=== PATIENT | female | born 1990 | race Caucasian/White ===

== ENCOUNTER 2018-04-12 19:17 | Emergency (ER) | payer BC ==
[2018-04-12] MEDS ORDERED: MORPHINE 4 MG/ML SYR ONE (19:59)
[2018-04-12] MEDS ORDERED: KETOROLAC 30 MG/ML INJ ONE (20:00)
[2018-04-12] MEDS ORDERED: NA CHLORIDE 0.9% 1,000 ML ONE (20:00)
[2018-04-12] MEDS ORDERED: ONDANSETRON 4 MG/2 ML VIAL ONE (20:00)
[2018-04-12] MEDS ORDERED: CEFTRIAXONE/SWI 1gm 1 GM/10 ML SYR ONE (20:00)
[2018-04-12 20:20] LABS: Absolute Lymphocytes (CBC) 2.4 K/uL (0.7-4.9); Absolute Monocytes 0.9 K/uL (0.1-1.3); Absolute Neutrophil 11.5 K/uL (1.8-8.0); Basophils % 0.3 % (0-1.3); Eosinophils % 1.1 % (0-4.4); Hematocrit 37.5 % (36.0-45.0); Lymphocytes % 15.7 % (15.3-44.8); MCH 29.2 pg (27.0-35.0); MCV 87.2 fL (80-100); MPV 8.4 fL (7.6-11.3); Monocytes % 5.9 % (3.3-12.3)
[2018-04-12] MEDS ORDERED: CIPROFLOXACIN HCL 500 MG TAB ONE (20:24)
[2018-04-12] MEDS ORDERED: TAMSULOSIN 0.4 MG SR CAP ONE (20:24)
[2018-04-12 20:35] LABS: ALT/SGPT 26 U/L (12-78); AST/SGOT 19 U/L (15-37); Alkaline Phosphatase 66 U/L (45-117); BUN Blood Urea Nitrogen 10 mg/dL (7-18); Bicarbonate 25 mmol/L (21-32); Bilirubin Direct < 0.1 mg/dL (0-0.2); Bilirubin Total 0.3 mg/dL (0.2-1.0); Glucose Level 89 mg/dL (74-106); Lipase 168 U/L (73-393); Potassium 3.7 mmol/L (3.5-5.1); Protein, Total 7.8 g/dL (6.4-8.2); Sodium Level 140 mmol/L (136-145)
--- NOTE | 2018-04-12 20:52 | RAD REPORT ---
EXAM DESCRIPTION: CT - Stone Protocol - 04/12/2018 8:37 pm CLINICAL HISTORY: Flank pain. Abd pain;Flank pain COMPARISON: No comparisons TECHNIQUE: Axial images were obtained without oral or IV contrast. Lack of contrast limits solid org an and vascular assessment. The [id number] spans the entirety of the system partially obscuring uppermost abdomen and lung bases. Coronal reformatted images were obtained and reviewed. All CT scans are performed using dose optimization technique as appropriate and may include automated exposure control or mA/KV adjustment according to patient size. FINDINGS: The lower lung singh are clear. Imaged portions of the liver and spleen show no suspicious findings on non-contrast imaging. The panc reas and adrenal glands are normal. No pathologic lymphadenopathy in the abdomen or pelvis. 2 mm stone is present at the UVJ with mild left hydronephrosis and hydroureter. Punctate additional b ilateral nephrolithiasis is also seen. No bowel obstruction, free air, free fluid or abscess. Normal appendix noted. No significant bony abnormality. IMPRESSION: 2 mm stone left UVJ resulting in mild left hydronephrosis. Punctate bilateral nephrolithiasis.
--- NOTE | 2018-04-12 20:58 | EDPHYS ---
Physician Documentation [facility] Name: Lorin Lyon Age: 27 yrs Sex: Female : 1990 Arrival Date: 04/12/2018 Time: 19:19 Bed 14 Private MD: Ivan Jackson T ED Physician Frank Hurtado HPI: 04/12 19:46 This 27 yrs old Female presents to ER via Ambulatory with complaints of Back pj Pain, Side Pain. 19:46 The patient presents with pain that is acute, with no known mechanism of injury. The pj symptoms are located in the low back, left low back and left mid back. Onset: The symptoms/episode began/occurred 1 day(s) ago. 20:01 The pain does not radiate. Associated signs and symptoms: The patient has no apparent pj associated signs or symptoms. The problem was sustained from unknown cause. Modifying factors: The patient symptoms are alleviated by nothing, the patient symptoms are aggravated by nothing. Severity of symptoms: At their worst the symptoms were moderate. The patient has experienced similar episodes in the past, a few times. 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 - Social history:: Smoking status: Patient uses tobacco products, smokes one pack cigarettes per day. - Ebola Screening: : Patient negative for fever greater than or equal to 101.5 degrees Fahrenheit, and additional compatible Ebola Virus Disease symptoms Patient denies exposure to infectious person Patient denies travel to an Ebola-affected area in the 21 days before illness onset No symptoms or risks identified at this time. - Family history:: not pertinent. ROS: 20:01 Constitutional: Negative for fever, chills, and weight loss, Eyes: Negative for injury, pj pain, redness, and discharge, ENT: Negative for injury, pain, and discharge, Neck: Negative for injury, pain, and swelling, Cardiovascular: Negative for chest pain, palpitations, and edema, Respiratory: Negative for shortness of breath, cough, wheezing, and pleuritic chest pain, Abdomen/GI: Negative for abdominal pain, nausea, vomiting, diarrhea, and constipation, : Negative for injury, bleeding, discharge, and swelling, MS/Extremity: Negative for injury and deformity, Skin: Negative for injury, rash, and discoloration, Neuro: Negative for headache, weakness, numbness, tingling, and seizure, Psych: Negative for depression, anxiety, suicide ideation, homicidal ideation, and hallucinations, Allergy/Immunology: Negative for hives, rash, and allergies, Endocrine: Negative for neck swelling, polydipsia, polyuria, polyphagia, and marked weight changes, Hematologic/Lymphatic: Negative for swollen nodes, abnormal bleeding, and unusual bruising. 20:01 Back: Positive for flank pain, on the left. Exam: 20:01 Constitutional: This is a well developed, well nourished patient who is awake, alert, pj and in no acute distress. Head/Face: Normocephalic, atraumatic. Eyes: Pupils equal round and reactive to light, extra-ocular motions intact. Lids and lashes normal. Conjunctiva and sclera are non-icteric and not injected. Cornea within normal limits. Periorbital areas with no swelling, redness, or edema. ENT: Nares patent. No nasal discharge, no septal abnormalities noted. Tympanic membranes are normal and external auditory canals are clear. Oropharynx with no redness, swelling, or masses, exudates, or evidence of obstruction, uvula midline. Mucous membranes moist. Neck: Trachea midline, no thyromegaly or masses palpated, and no cervical lymphadenopathy. Supple, full range of motion without nuchal rigidity, or vertebral point tenderness. No Meningismus. Chest/axilla: Normal chest wall appearance and motion. Nontender with no deformity. No lesions are appreciated. Cardiovascular: Regular rate and rhythm with a normal S1 and S2. No gallops, murmurs, or rubs. Normal PMI, no JVD. No pulse deficits. Respiratory: Lungs have equal breath sounds bilaterally, clear to auscultation and percussion. No rales, rhonchi or wheezes noted. No increased work of breathing, no retractions or nasal flaring. Female : Normal external genitalia. Skin: Warm, dry with normal turgor. Normal color with no rashes, no lesions, and no evidence of cellulitis. MS/ Extremity: Pulses equal, no cyanosis. Neurovascular intact. Full, normal range of motion. Neuro: Awake and alert, GCS 15, oriented to person, place, time, and situation. Cranial nerves II-XII grossly intact. Motor strength 5/5 in all extremities. Sensory grossly intact. Cerebellar exam normal. Normal gait. Psych: Awake, alert, with orientation to person, place and time. Behavior, mood, and affect are within normal limits. 20:01 Abdomen/GI: Inspection: abdomen appears normal, Bowel sounds: normal, Palpation: mild abdominal tenderness, moderate abdominal tenderness, in the posterior aspect of left lateral abdomen and left lower quadrant, Liver: no appreciated palpable abnormalities, Hernia: not appreciated. Vital Signs: 19:25 BP 135 / 75; Pulse 95; Resp 18; Temp 98.1; Pulse Ox 99% on R/A; Weight 63.5 kg; Height aj 5 ft. 4 in. (162.56 cm); 20:30 BP 124 / 65; Pulse 89; Resp 17 S; Pulse Ox 99% on R/A; Pain 0/10; cc3 21:05 BP 114 / 67; Pulse 88; Resp 17 S; Pulse Ox 100% on R/A; Pain 0/10; cc3 19:25 Body Mass Index 24.03 (63.50 kg, 162.56 cm) aj MDM: 19:30 Patient medically screened. [facility] 20:01 Data reviewed: vital signs, nurses notes, lab test result(s), radiologic studies, CT pj scan. 04/12 19:46 Order name: Basic Metabolic Panel; Complete Time: 20:56 pj 04/12 19:46 Order name: CBC with Diff; Complete Time: 20:56 [facility] 04/12 19:46 Order name: Creatinine for Radiology; Complete Time: 20:56 pj 04/12 19:46 Order name: Hepatic Function; Complete Time: 20:56 pj 04/12 19:46 Order name: Lipase; Complete Time: 20:56 pj 04/12 19:47 Order name: Urine Dipstick--Ancillary (enter results) ms 04/12 19:46 Order name: CT Stone Protocol; Complete Time: 20:56 pj 04/12 19:47 Order name: Urine --Ancillary (enter results) ms 04/12 20:03 Order name: Urine Culture mg2 04/12 19:46 Order name: IV Saline Lock; Complete Time: 20:02 pj 04/12 19:46 Order name: Labs collected and sent; Complete Time: 20:02 [facility] Administered Medications: 20:01 Drug: morphine 4 mg Route: IVP; Site: right antecubital; mg2 20:15 Follow up: Response: No adverse reaction; Pain is decreased cc3 20:01 Drug: Zofran 4 mg Route: IVP; Site: right antecubital; mg2 20:15 Follow up: Response: No adverse reaction; Nausea is decreased; Vomiting decreased cc3 20:02 Drug: NS 0.9% 1000 ml Route: IV; Rate: 1 bolus; Site: right antecubital; mg2 21:20 Follow up: Response: No adverse reaction; IV Status: Completed infusion; IV Intake: cc3 1000ml 20:02 Drug: TORadol 30 mg Route: IVP; Site: right antecubital; mg2 20:15 Follow up: Response: No adverse reaction cc3 20:02 Drug: Rocephin - (cefTRIAXone) 1 grams Route: IVPB; Infused Over: 30 mins; Site: right mg2 antecubital; 20:30 Follow up: Response: No adverse reaction; IV Status: Completed infusion; IV Intake: [id number] 20:15 Drug: Flomax 0.4 mg Route: PO; cc3 21:00 Follow up: Response: No adverse reaction cc3 20:15 Drug: Cipro 500 mg Route: PO; cc3 21:00 Follow up: Response: No adverse reaction cc3 Disposition: 04/12/18 20:58 Discharged to Home. Impression: Acute tubulo-interstitial nephritis, Cystitis, Hydronephrosis with renal and ureteral calculous obstruction - 2mm uvj. - Condition is Stable. - Discharge Instructions: Dysuria, Kidney Stones, Pyelonephritis, Adult, Pyelonephritis, Adult, [id number], Kidney Stones, [id number], Hydronephrosis, Dietary Guidelines to Help Prevent Kidney Stones. - Prescriptions for Tylenol- Codeine #3 300-30 mg Oral Tablet - take 2 tablet by ORAL route every 6 hours As needed; 30 tablet. Flomax 0.4 mg Oral Capsule, Sust. Release 24 hr - take 1 capsule by ORAL route once daily 1/2 hour following the same meal each day; 20 capsule. Cipro 500 mg Oral Tablet - take 1 tablet by ORAL route every 12 hours for 7 days; 14 tablet. - Medication Reconciliation Form, Thank You Letter, Antibiotic Education, Prescription Opioid Use form. - Follow up: Ivan Jackson; When: 2 - 3 days; Reason: Recheck today's complaints, Continuance of care, Re-evaluation by your physician. Follow up: Abram Perkins MD; When: 2 - 3 days; Reason: Recheck today's complaints, Continuance of care, Re-evaluation by your physician. - Problem is new. - Symptoms have improved. Signatures: Dispatcher [employer] EDJacinda Ngueyn RN RN aj Anderson, Corey, MD MD cha Gardose, Michele, RN RN mg2 Cordel, Charlene cc3 Corrections: (The following items were deleted from the chart) 20:59 20:58 04/12/2018 20:58 Discharged to Home. Impression: Acute tubulo-interstitial pj nephritis; Cystitis; Hydronephrosis with renal and ureteral calculous obstruction - 2mm uvj. Condition is Stable. Discharge Instructions: Dysuria, Pyelonephritis, Adult, Pyelonephritis, Adult, [id number]. Prescriptions for Tylenol-Codeine #3 300-30 mg Oral Tablet - take 2 tablet by ORAL route every 6 hours As needed; 30 tablet, Flomax 0.4 mg Oral Capsule, Sust. Release 24 hr - take 1 capsule by ORAL route once daily 1/2 hour following the same meal each day; 20 capsule, Cipro 500 mg Oral Tablet - take 1 tablet by ORAL route every 12 hours for 7 days; 14 tablet. and Forms are Medication Reconciliation Form, Thank You Letter, Antibiotic Education, Prescription Opioid Use. Follow up: Ivan Jackson; When: 2 - 3 days; Reason: Recheck today's complaints, Continuance of care, Re-evaluation by your physician. Problem is new. Symptoms have improved. pj 21:31 20:59 04/12/2018 20:58 Discharged to Home. Impression: Acute tubulo-interstitial cc3 nephritis; Cystitis; Hydronephrosis with renal and ureteral calculous obstruction - 2mm uvj. Condition is Stable. Discharge Instructions: Dysuria, Pyelonephritis, Adult, Pyelonephritis, Adult, [id number], Kidney Stones, Kidney Stones, [id number], Hydronephrosis, Dietary Guidelines to Help Prevent Kidney Stones. Prescriptions for Tylenol-Codeine #3 300-30 mg Oral Tablet - take 2 tablet by ORAL route every 6 hours As needed; 30 tablet, Flomax 0.4 mg Oral Capsule, Sust. Release 24 hr - take 1 capsule by ORAL route once daily 1/2 hour following the same meal each day; 20 capsule, Cipro 500 mg Oral Tablet - take 1 tablet by ORAL route every 12 hours for 7 days; 14 tablet. and Forms are Medication Reconciliation Form, Thank You Letter, Antibiotic Education, Prescription Opioid Use. Follow up: Ivan Jackson; When: 2 - 3 days; Reason: Recheck today's complaints, Continuance of care, Re-evaluation by your physician. Follow up: Abram Perkins; When: 2 - 3 days; Reason: Recheck today's complaints, Continuance of care, Re-evaluation by your physician. Problem is new. Symptoms have improved. pj
--- NOTE | 2018-04-12 20:58 | ER ---
Nurse's Notes [facility] Name: Lorin Lyon Age: 27 yrs Sex: Female : 1990 Arrival Date: 04/12/2018 Time: 19:19 Bed 14 Private MD: Ivan Jackson T Diagnosis: Acute tubulo-interstitial nephritis;Cystitis;Hydronephrosis with renal and ureteral calculous obstruction-2mm uvj Presentation: 04/12 19:24 Presenting complaint: Patient states: Left flank pain 3 hours ago with nausea. aj Transition of care: patient was not received from another setting of care. Onset of symptoms was April 12, 2018. Risk Assessment: Do you want to hurt yourself or someone else? Patient reports no desire to harm self or others. Initial Sepsis Screen: Does the patient meet any 2 criteria? No. Patient's initial sepsis screen is negative. Does the patient have a suspected source of infection? No. Patient's initial sepsis screen is negative. Care prior to arrival: None. 19:24 Method Of Arrival: Ambulatory aj 19:24 Acuity: PATRICIA 3 aj Triage Assessment: 19:25 General: Appears in no apparent distress. uncomfortable, Behavior is cooperative, aj crying. Pain: Complains of pain in posterior aspect of left lateral abdomen and anterior aspect of left lateral abdomen. Neuro: Level of Consciousness is awake, alert, obeys commands, Oriented to person, place, time, situation, Appropriate for age. Respiratory: Airway is patent Respiratory effort is even, unlabored, Respiratory pattern is regular, symmetrical. : Reports pain in left flank(s). Derm: Skin is intact, is healthy with good turgor. Musculoskeletal: Circulation, motion, and sensation intact. 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 - Social history:: Smoking status: Patient uses tobacco products, smokes one pack cigarettes per day. - Ebola Screening: : Patient negative for fever greater than or equal to 101.5 degrees Fahrenheit, and additional compatible Ebola Virus Disease symptoms Patient denies exposure to infectious person Patient denies travel to an Ebola-affected area in the 21 days before illness onset No symptoms or risks identified at this time. - Family history:: not pertinent. Screenin:30 Abuse screen: Denies threats or abuse. Denies injuries from another. Nutritional cc3 screening: No deficits noted. Tuberculosis screening: No symptoms or risk factors identified. Fall Risk Ambulatory Aid- None/Bed Rest/Nurse Assist (0 pts). Gait- Normal/Bed Rest/Wheelchair (0 pts) Mental Status- Oriented to own ability (0 pts). Assessment: 19:30 General: see triage note. cc3 20:15 Reassessment: Patient appears in no apparent distress at this time. Patient and/or cc3 family updated on plan of care and expected duration. Pain level reassessed. Patient is alert, oriented x 3, equal unlabored respirations, skin warm/dry/pink. Patient denies pain at this time. Patient states feeling better. Patient states symptoms have improved. 20:15 Neuro: Level of Consciousness is awake, alert, obeys commands, Oriented to person, cc3 place, time, situation, Appropriate for age. 21:20 Reassessment: Patient appears in no apparent distress at this time. Patient and/or cc3 family updated on plan of care and expected duration. Pain level reassessed. Patient is alert, oriented x 3, equal unlabored respirations, skin warm/dry/pink. Patient discharged home by Dr. Hurtado with prescription given. Patient left ER vitally stable and ambulatory with her father. Vital Signs: 19:25 BP 135 / 75; Pulse 95; Resp 18; Temp 98.1; Pulse Ox 99% on R/A; Weight 63.5 kg; Height aj 5 ft. 4 in. (162.56 cm); 20:30 BP 124 / 65; Pulse 89; Resp 17 S; Pulse Ox 99% on R/A; Pain 0/10; cc3 21:05 BP 114 / 67; Pulse 88; Resp 17 S; Pulse Ox 100% on R/A; Pain 0/10; cc3 19:25 Body Mass Index 24.03 (63.50 kg, 162.56 cm) ED Course: 19:19 Patient arrived in ED. do 19:19 Ivan Jackson MD is Private Physician. do 19:25 Triage completed. aj 19:25 Arm band placed on left wrist. Patient placed in an exam room. aj 19:30 Frank Hurtado MD is Attending Physician. pj 19:30 Patient has correct armband on for positive identification. Bed in low position. Call cc3 light in reach. Side rails up X 1. 19:46 Baldomero Hansen, RN is Primary Nurse. mg2 20:03 Inserted saline lock: 20 gauge in right antecubital area, using aseptic technique. mg2 Blood collected. 20:34 Patient moved to ID via wheelchair. jg6 20:37 CT Stone Protocol In Process Unspecified. EDMS 20:37 CT completed. Patient tolerated procedure well. Patient moved back from ID. jg6 20:57 Ivan Jackson MD is Referral Physician. pj 20:58 Abram Perkins MD is Referral Physician. pj 21:20 No provider procedures requiring assistance completed. IV discontinued, intact, cc3 bleeding controlled, No redness/swelling at site. Pressure dressing applied. Administered Medications: 20:01 Drug: morphine 4 mg Route: IVP; Site: right antecubital; mg2 20:15 Follow up: Response: No adverse reaction; Pain is decreased cc3 20:01 Drug: Zofran 4 mg Route: IVP; Site: right antecubital; mg2 20:15 Follow up: Response: No adverse reaction; Nausea is decreased; Vomiting decreased cc3 20:02 Drug: NS 0.9% 1000 ml Route: IV; Rate: 1 bolus; Site: right antecubital; mg2 21:20 Follow up: Response: No adverse reaction; IV Status: Completed infusion; IV Intake: cc3 1000ml 20:02 Drug: TORadol 30 mg Route: IVP; Site: right antecubital; mg2 20:15 Follow up: Response: No adverse reaction cc3 20:02 Drug: Rocephin - (cefTRIAXone) 1 grams Route: IVPB; Infused Over: 30 mins; Site: right mg2 antecubital; 20:30 Follow up: Response: No adverse reaction; IV Status: Completed infusion; IV Intake: [id number] 20:15 Drug: Flomax 0.4 mg Route: PO; cc3 21:00 Follow up: Response: No adverse reaction cc3 20:15 Drug: Cipro 500 mg Route: PO; cc3 21:00 Follow up: Response: No adverse reaction cc3 Intake: 20:30 IV: 50ml; Total: 50ml. cc3 21:20 IV: 1000ml; Total: 1050ml. cc3 Outcome: 20:58 Discharge ordered by . pj 21:20 Discharged to home ambulatory. cc3 21:20 Condition: stable 21:20 Discharge instructions given to patient, family, Instructed on discharge instructions, follow up and referral plans. medication usage, Demonstrated understanding of instructions, follow-up care, medications, Prescriptions given X 3. 21:31 Patient left the ED. cc3 Addendum: 04/16/2018 08:02 Addendum: Culture Results: No further action required. Bacteria sensitive to prescribed i w antibiotic. Signatures: Dispatcher [employer] EDJacinda Nguyen RN RN aj Anderson, Corey, MD MD cha Williams, Irene RN Kierra Haley Michele RN Kelsea Morelos Jessica [email or web address]
[2018-04-12 21:03] LABS: Urine Blood 2+ (NEG); Urine Glucose NEGATIVE (NEG); Urine Protein 2+ (NEG); Urine pH 7.5 (5.0-7.0)
== END 2018-04-12 21:31 | disposition home or self-care (01) ==
LOC: ER 19:17
DX: N10 Acute pyelonephritis (principal); N30.90 Cystitis, unspecified without hematuria; N13.2 Hydronephrosis with renal and ureteral calculous obstruction
CPT/HCPCS: 36415; 74176; 76377; 80048; 80076; 81003; 81025; 83690; 85025; 87077; 87086; 87088; 87186; 96361; 96365; 96375; 99284; J0696; J2405; J7030

== ENCOUNTER 2019-08-19 11:51 | Emergency (ER) | payer BC ==
--- OUTSIDE RECORDS SUMMARY | 2019-08-19 11:53 | XMS REPORT ---
:1990 [facility] [address] [place] [address] [place] [id number] Care Team Providers Name Role Phone Unavailable Unavailable Unavailable Problems This patient has no known problems. Allergies, Adverse Reactions, Alerts This patient has no known allergies or adverse reactions. Medications This patient has no known medications.
[2019-08-19 13:38] LABS: Urine Blood 1+ (NEG); Urine Glucose NEGATIVE (NEG); Urine Protein NEGATIVE (NEG); Urine Specific Gravity 1.025 (1.005-1.030)
[2019-08-19 14:14] LABS: Absolute Lymphocytes (CBC) 2.5 K/uL (0.7-4.9); Basophils % 0.3 % (0-1.3); Hematocrit 35.5 % (36.0-45.0); Lymphocytes % 27.7 % (15.3-44.8); MPV 8.2 fL (7.6-11.3); RBC Red Blood Cell Count 4.07 M/uL (3.86-4.86)
[2019-08-19] MEDS ORDERED: NA CHLORIDE 0.9% 1,000 ML ONE (14:25)
--- NOTE | 2019-08-19 14:41 | RAD REPORT ---
EXAM DESCRIPTION: US - Renal Ultrasound-Limited - 08/19/2019 2:31 pm CLINICAL HISTORY: Left flank pain FINDINGS: Limited ultrasound performed to assess the left kidney. Left kidney measures 11 centimeters with a normal echotexture. There is no hydronephrosis No gross abnormality of bladder IMPRESSION: Unremarkable left renal ultrasound
--- NOTE | 2019-08-19 14:41 | RAD REPORT ---
EXAM DESCRIPTION: US - Transvaginal OB - 08/19/2019 2:25 pm CLINICAL HISTORY: with pelvic pain COMPARISON: None. FINDINGS: The uterus measures 10 x 5 x 6 centimeters. A gestational sac measures 3 x 5 x 7 millimet ers. A yolk sac is not seen. A pole is not demonstrated. Right and left ovary appear normal. . An adnexal mass is not noted. No significant free fluid is seen. IMPRESSION: Mild gestational sac within the endometrium. This may represent a viable intrauterine pr egnancy in which a pole is not seen secondary to the early gestation. Estimated gestational age 5 weeks 2 days DARELL 04/18/2020. Other considerations include an incomplete and pseudo gestational sac associated with ectopi c . This all should be correlated clinically and with serial beta HCG levels. Followup endov aginal sonogram in 1 week recommended
[2019-08-19 14:53] LABS: BUN Blood Urea Nitrogen 10 mg/dL (7-18); Bicarbonate 26 mmol/L (21-32); Glucose Level 89 mg/dL (74-106); HCG, Quantitative 3429 mIU/mL (1-3); Potassium 3.9 mmol/L (3.5-5.1); Sodium Level 139 mmol/L (136-145)
--- NOTE | 2019-08-19 15:13 | ER ---
Nurse's Notes [facility] Name: Lorin Lyon Age: 28 yrs Sex: Female : 1990 Arrival Date: 08/19/2019 Time: 11:55 Bed 24 Private MD: Diagnosis: Abdominal tenderness; related conditions, unspecified, first trimester;Threatened Presentation: 08/19 12:31 Presenting complaint: Patient states: Since Last night to early this morning. I have ca1 been cramping really bad on my LL side. Spotty on and off since beginning of . Reports N/V. Transition of care: patient was not received from another setting of care. Onset of symptoms was August 19, 2019. Risk Assessment: Do you want to hurt yourself or someone else? Patient reports no desire to harm self or others. Initial Sepsis Screen: Does the patient meet any 2 criteria? No. Patient's initial sepsis screen is negative. Does the patient have a suspected source of infection? No. Patient's initial sepsis screen is negative. Care prior to arrival: None. 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 - Coronavirus screen:: The patient has NOT traveled to [place], [place], or [place] in the past 14 days. The patient has NOT had contact with known/suspected case of Coronavirus?. - Social history:: Smoking status: Patient reports the use of cigarette tobacco products, smokes one-half pack cigarettes per day. - Family history:: not pertinent. - Ebola Screening: : Patient negative for fever greater than or equal to 101.5 degrees Fahrenheit, and additional compatible Ebola Virus Disease symptoms Patient denies exposure to infectious person Patient denies travel to an Ebola-affected area in the 21 days before illness onset No symptoms or risks identified at this time. Screenin:00 Abuse screen: Denies threats or abuse. Denies injuries from another. Nutritional ph screening: No deficits noted. Tuberculosis screening: No symptoms or risk factors identified. Fall Risk None identified. Assessment: 13:45 General: Appears in no apparent distress. comfortable, slender, well groomed, Behavior ph is calm, cooperative, appropriate for age, Denies fever, feeling ill. Pain: Complains of pain in left lower quadrant. Neuro: Level of Consciousness is awake, alert, obeys commands, Oriented to person, place, time, situation. Cardiovascular: Capillary refill < 3 seconds in bilateral fingers Patient's skin is warm and dry. Respiratory: Airway is patent Respiratory effort is even, unlabored, Respiratory pattern is regular, symmetrical. GI: Abdomen is non-distended, Bowel sounds present X 4 quads. Abd is soft and non tender X 4 quads. Reports lower abdominal pain, nausea, Patient currently denies diarrhea, vomiting. : Reports cramping, in left lower quadrant(s) vaginal bleeding that is spotty. Derm: Skin is intact, is healthy with good turgor, Skin is pink, warm \T\ dry. Musculoskeletal: Circulation, motion, and sensation intact. Range of motion: intact in all extremities. 15:00 Reassessment: Patient appears in no apparent distress at this time. Patient and/or ph family updated on plan of care and expected duration. Pain level reassessed. Patient is alert, oriented x 3, equal unlabored respirations, skin warm/dry/pink. Vital Signs: 12:34 BP 101 / 65; Pulse 72; Resp 19 S; Temp 98.2(O); Pulse Ox 99% on R/A; Weight 63.5 kg ca1 (R); Height 5 ft. 5 in. (165.10 cm) (R); Pain 5/10; 12:34 Body Mass Index 23.30 (63.50 kg, 165.10 cm) ca1 ED Course: 11:55 Patient arrived in ED. mr 12:33 Triage completed. ca1 12:34 Arm band placed on right wrist. ca1 12:52 Rebekah Zamora, PRABHA is Primary Nurse. ph 12:54 Frank Hurtado MD is Attending Physician. pj 13:58 Initial lab(s) drawn, by me, sent to lab. Inserted saline lock: 20 gauge in right lt1 antecubital area, using aseptic technique. 13:59 CBC with Diff Sent. lt1 13:59 Basic Metabolic Panel Sent. lt1 13:59 Abo/rh Typing Sent. lt1 13:59 Quantitative Hcg Sent. lt1 15:00 Patient has correct armband on for positive identification. Placed in gown. Bed in low ph position. Call light in reach. Side rails up X 1. Pulse ox on. NIBP on. Door closed. Noise minimized. Warm blanket given. 15:05 Natalio Diamond MD is Referral Physician. [facility] 16:00 No provider procedures requiring assistance completed. IV discontinued, intact, ph bleeding controlled, No redness/swelling at site. Pressure dressing applied. Administered Medications: 14:52 Drug: NS 0.9% 1000 ml Route: IV; Rate: 1 bolus; Site: right antecubital; ph 15:30 Follow up: Response: No adverse reaction; IV Status: Completed infusion; IV Intake: ph 1000ml Intake: 15:30 IV: 1000ml; Total: 1000ml. ph Outcome: 15:05 Discharge ordered by . [facility] [place] 16:00 Discharged to home ambulatory, with family. ph 16:00 Condition: good 16:00 Discharge instructions given to patient, Instructed on discharge instructions, follow up and referral plans. medication usage, Demonstrated understanding of instructions, follow-up care, medications, Prescriptions given X 1. 16:01 Patient left the ED. ph Signatures: Frank Hurtado MD MD cha Rivera, Sun Rebekah Zamora RN RN ph Acob, Cheryl, RN RN ca1 Tran, Leah lt1
--- NOTE | 2019-08-19 15:14 | EDPHYS ---
Physician Documentation [facility] Name: Lorin Lyon Age: 28 yrs Sex: Female : 1990 Arrival Date: 08/19/2019 Time: 11:55 Bed 24 Private MD: ED Physician Frank uHrtado HPI: 08/19 13:33 This 28 yrs old Female presents to ER via Ambulatory with complaints of pj Abdominal Cramping, . 13:33 The patient presents to the emergency department with vaginal bleeding. The estimated pj gestational age is 6 weeks. course: care: private OB physician, Dr. gracia. Previous pregnancies: in previous pregnancies patient has had vaginal delivery. The patient has not experienced similar symptoms in the past. 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 - Coronavirus screen:: The patient has NOT traveled to [place], [place], or [place] in the past 14 days. The patient has NOT had contact with known/suspected case of Coronavirus?. - Social history:: Smoking status: Patient reports the use of cigarette tobacco products, smokes one-half pack cigarettes per day. - Family history:: not pertinent. - Ebola Screening: : Patient negative for fever greater than or equal to 101.5 degrees Fahrenheit, and additional compatible Ebola Virus Disease symptoms Patient denies exposure to infectious person Patient denies travel to an Ebola-affected area in the 21 days before illness onset No symptoms or risks identified at this time. ROS: 13:33 Constitutional: Negative for fever, chills, and weight loss, Eyes: Negative for injury, pj pain, redness, and discharge, ENT: Negative for injury, pain, and discharge, Neck: Negative for injury, pain, and swelling, Cardiovascular: Negative for chest pain, palpitations, and edema, Respiratory: Negative for shortness of breath, cough, wheezing, and pleuritic chest pain, MS/Extremity: Negative for injury and deformity, Skin: Negative for injury, rash, and discoloration, Neuro: Negative for headache, weakness, numbness, tingling, and seizure, Psych: Negative for depression, anxiety, suicide ideation, homicidal ideation, and hallucinations, Allergy/Immunology: Negative for hives, rash, and allergies, Endocrine: Negative for neck swelling, polydipsia, polyuria, polyphagia, and marked weight changes, Hematologic/Lymphatic: Negative for swollen nodes, abnormal bleeding, and unusual bruising. 13:33 Abdomen/GI: Positive for abdominal pain, of the right lower quadrant and left lower quadrant. 13:33 Back: Positive for flank pain, on the left. Exam: 13:33 Constitutional: This is a well developed, well nourished patient who is awake, alert, pj and in no acute distress. Head/Face: Normocephalic, atraumatic. Eyes: Pupils equal round and reactive to light, extra-ocular motions intact. Lids and lashes normal. Conjunctiva and sclera are non-icteric and not injected. Cornea within normal limits. Periorbital areas with no swelling, redness, or edema. ENT: Nares patent. No nasal discharge, no septal abnormalities noted. Tympanic membranes are normal and external auditory canals are clear. Oropharynx with no redness, swelling, or masses, exudates, or evidence of obstruction, uvula midline. Mucous membranes moist. Neck: Trachea midline, no thyromegaly or masses palpated, and no cervical lymphadenopathy. Supple, full range of motion without nuchal rigidity, or vertebral point tenderness. No Meningismus. Chest/axilla: Normal chest wall appearance and motion. Nontender with no deformity. No lesions are appreciated. Cardiovascular: Regular rate and rhythm with a normal S1 and S2. No gallops, murmurs, or rubs. Normal PMI, no JVD. No pulse deficits. Respiratory: Lungs have equal breath sounds bilaterally, clear to auscultation and percussion. No rales, rhonchi or wheezes noted. No increased work of breathing, no retractions or nasal flaring. Back: No spinal tenderness. No costovertebral tenderness. Full range of motion. Female : Normal external genitalia. Skin: Warm, dry with normal turgor. Normal color with no rashes, no lesions, and no evidence of cellulitis. MS/ Extremity: Pulses equal, no cyanosis. Neurovascular intact. Full, normal range of motion. Neuro: Awake and alert, GCS 15, oriented to person, place, time, and situation. Cranial nerves II-XII grossly intact. Motor strength 5/5 in all extremities. Sensory grossly intact. Cerebellar exam normal. Normal gait. Psych: Awake, alert, with orientation to person, place and time. Behavior, mood, and affect are within normal limits. 13:33 Abdomen/GI: Inspection: abdomen appears normal, Bowel sounds: normal, Palpation: mild abdominal tenderness, in the left lower quadrant, Liver: no appreciated palpable abnormalities, Hernia: not appreciated. Vital Signs: 12:34 BP 101 / 65; Pulse 72; Resp 19 S; Temp 98.2(O); Pulse Ox 99% on R/A; Weight 63.5 kg ca1 (R); Height 5 ft. 5 in. (165.10 cm) (R); Pain 5/10; 12:34 Body Mass Index 23.30 (63.50 kg, 165.10 cm) ca1 MDM: 12:54 Patient medically screened. [facility] 13:37 Data reviewed: vital signs, nurses notes, lab test result(s), radiologic studies. [facility] 08/19 12:57 Order name: Quantitative Hcg [facility] 08/19 12:57 Order name: Abo/rh Typing [facility] 08/19 12:57 Order name: Basic Metabolic Panel [facility] 08/19 12:57 Order name: CBC with Diff [facility] 08/19 12:58 Order name: Urine Culture [facility] 08/19 13:08 Order name: Urine Dipstick--Ancillary (enter results) 08/19 12:57 Order name: US Transvaginal Ob [facility] 08/19 13:08 Order name: Urine --Ancillary (enter results) 08/19 13:39 Order name: Urine --Ancillary; Complete Time: 15:02 [facility] 08/19 13:39 Order name: Urine Dipstick-Ancillary; Complete Time: 15:03 [facility] 08/19 14:17 Order name: CBC with Automated Diff; Complete Time: 15:03 [facility] 08/19 14:28 Order name: ABO/RH typing; Complete Time: 15:03 [facility] 08/19 14:55 Order name: Basic Metabolic Panel; Complete Time: 15:03 [facility] 08/19 14:55 Order name: HCG, Quantitative; Complete Time: 15:03 [facility] 08/19 12:57 Order name: Urine Test (obtain specimen); Complete Time: 13:50 [facility] 08/19 12:57 Order name: IV Saline Lock; Complete Time: 13:51 [facility] 08/19 12:57 Order name: Labs collected and sent; Complete Time: 13:59 [facility] 08/19 12:57 Order name: NPO; Complete Time: 13:51 [facility] 08/19 12:57 Order name: Urine Dipstick-Ancillary (obtain specimen); Complete Time: 13:50 [facility] 08/19 12:57 Order name: Rp Exam Limited: left kidney only, ro hydro [facility] 08/19 15:21 Order name: [facility] 08/19 15:21 Order name: [facility] Administered Medications: 14:52 Drug: NS 0.9% 1000 ml Route: IV; Rate: 1 bolus; Site: right antecubital; ph 15:30 Follow up: Response: No adverse reaction; IV Status: Completed infusion; IV Intake: ph 1000ml Disposition: 08/19/19 15:05 Discharged to Home. Impression: Abdominal tenderness, related conditions, unspecified, first trimester, Threatened . - Condition is Stable. - Discharge Instructions: Abdominal Pain, Adult, Threatened Miscarriage, First Trimester of , Rlip-[id number], Abdominal Pain, Adult, Ciqv-ao-Pfyf, First Trimester of , Pelvic Rest, Vaginal Bleeding During , First Trimester, Wnvm-nl-Vkbo. - Prescriptions for Vitamin 27- 0.8 mg Oral Tablet - take 1 tablet by ORAL route once daily; 30 tablet. - Medication Reconciliation Form, Thank You Letter, Antibiotic Education, Prescription Opioid Use, Work release form form. - Follow up: Private Physician; When: 2 - 3 days; Reason: Recheck today's complaints, Continuance of care, Re-evaluation by your physician. Follow up: Natalio Gracia; When: 2 - 3 days; Reason: Recheck today's complaints, Re-evaluation by your physician. - Problem is new. - Symptoms have improved. Signatures: Dispatcher [employer] [facility] Frank Hurtado MD MD cha Hall, Patricia, RN RN Kaycee Beck RN RN [facility] Corrections: (The following items were deleted from the chart) 16:01 15:05 08/19/2019 15:05 Discharged to Home. Impression: Abdominal tenderness; ph related conditions, unspecified, first trimester; Threatened . Condition is Stable. Discharge Instructions: Abdominal Pain, Adult, First Trimester of , Zwjh-lh-Ijne, Abdominal Pain, Adult, Sepk-hn-Xegg, First Trimester of , Pelvic Rest. Prescriptions for Vitamin 27-0.8 mg Oral Tablet - take 1 tablet by ORAL route once daily; 30 tablet. and Forms are Medication Reconciliation Form, Thank You Letter, Antibiotic Education, Prescription Opioid Use. Follow up: Private Physician; When: 2 - 3 days; Reason: Recheck today's complaints, Continuance of care, Re-evaluation by your physician. Follow up: Natalio Gracia; When: 2 - 3 days; Reason: Recheck today's complaints, Re-evaluation by your physician. Problem is new. Symptoms have improved. pj
[2019-08-20 03:23] VITALS: BP 101/65; TEMP 98.2; O2SAT 99
== END 2019-08-19 16:01 | disposition home or self-care (01) ==
LOC: ER 11:51
DX: O20.0 Threatened abortion (principal); O99.331 Smoking (tobacco) complicating pregnancy, first trimester; F17.210 Nicotine dependence, cigarettes, uncomplicated; Z3A.01 Less than 8 weeks gestation of pregnancy
CPT/HCPCS: 87088; 85025; 87086; 80048; 36415; 86900; 81025; 86901; 84702; 81003; 76775; 76817; 96360; 99284; J7030

== ENCOUNTER 2019-09-08 16:37 | Emergency (ER) | payer BC, OTHER ==
--- OUTSIDE RECORDS SUMMARY | 2019-09-08 16:39 | XMS REPORT ---
:1990 [facility] Address [address] [place] [address] [place] [id number] Care Team Providers Name Role Phone Unavailable Unavailable Unavailable Problems This patient has no known problems. Allergies, Adverse Reactions, Alerts This patient has no known allergies or adverse reactions. Medications This patient has no known medications.
--- OUTSIDE RECORDS SUMMARY | 2019-09-08 16:40 | XMS REPORT | Summary of Care ---
:[address] [facility] Address [address] [place] [address] Care Team Providers Name Role Phone Ivan Jackson Primary Care Provider Reason for Visit Reason Comments Results Encounter Details Date Type Department Care Team Description 08/12/2019 Telephone [facility] Kay Marino, Results [address] [place] [address] [address] [phone] [place] [address] Allergies Active Allergy Reactions Severity Noted Date Comments Pineapple Hives 08/18/2018 documented as of this encounter (statuses as of 08/12/2019) Medications Medication Sig Dispensed Refills Start Date End Date Status VALACYCLOVIR HCL Take by mouth. 0 Active (VALTREX ORAL) sulfamethoxazole-trime Take 1 tablet by 20 tablet 0 04/26/2017 Active thoprim 800-160 mg per mouth 2 (two) tablet times daily. ranitidine (ZANTAC) Take 1 tablet by 30 tablet 1 08/18/2018 Active 150 mg mouth 2 (two) tabletIndications: times daily. Nausea and vomiting, Follow up with intractability of your MD for vomiting not further evaluation specified, unspecified and treatment. vomiting type ondansetron (ZOFRAN Take 1 tablet by 20 tablet 0 08/18/2018 Active ODT) 4 mg mouth every 8 disintegrating (eight) hours as tabletIndications: needed for Nausea Nausea and vomiting, and Vomiting intractability of (N/V). vomiting not specified, unspecified vomiting type documented as of this encounter (statuses as of 08/12/2019) Active Problems Problem Noted Date Other general counseling and advice for contraceptive management 08/09/2019 documented as of this encounter (statuses as of 08/12/2019) Social History Tobacco Use Types Packs/Day Years Used Date Former Smoker 0.3 3 Alcohol Use Drinks/Week oz/Week Comments Yes socially Sex Assigned at Date Recorded Not on file Job Start Date Occupation Industry Not on file Not on file Not on file Travel History Travel Start Travel End No recent travel history available. documented as of this encounter Last Filed Vital Signs Not on filedocumented in this encounter Plan of Treatment Name Type Priority Associated Diagnoses Order Schedule TOTAL BETA HCG ASSAY LAB Routine Missed menses 2 Occurrences starting 08/12/2019 until 09/10/2019 Health Maintenance Due Date Last Done Comments VARICELLA VACCINES (1 of 2 - 1993 2-dose childhood series) DTaP,Tdap,and Td Vaccines (1 - 2003 Tdap) HPV VACCINES (1 - Female 2-dose 2003 series) PAP SMEAR 2013 INFLUENZA VACCINE (#1) 2019 PNEUMOCOCCAL 0-64 YEARS COMBINED Aged Out No longer eligible based on SERIES patient's age to complete this topic documented as of this encounter Results Not on filedocumented in this encounter Visit Diagnoses Diagnosis Missed menses - Primary Absence of menstruation documented in this encounter Insurance Payer Benefit Plan Subscriber ID Effective Dates Phone Address Type / Group BCBS OF [facility] [id number] 2015-Samson [phone] [address] PPO/POS [place] t [id number] [place] [address] documented as of this encounter
--- OUTSIDE RECORDS SUMMARY | 2019-09-08 16:40 | XMS REPORT | Summary of Care ---
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 [id number] 2015-Samson [phone] [address] PPO/POS [place] t [id number] [place] [address] documented as of this encounter
[2019-09-08 17:10] LABS: Absolute Lymphocytes (CBC) 3.2 K/uL (0.7-4.9); Basophils % 0.3 % (0-1.3); Hematocrit 34.9 % (36.0-45.0); RBC Red Blood Cell Count 4.02 M/uL (3.86-4.86)
[2019-09-08 17:14] LABS: Urine Blood 3+ (NEG); Urine Glucose NEGATIVE (NEG); Urine Protein TRACE (NEG)
[2019-09-08] MEDS ORDERED: NA CHLORIDE 0.9% 1,000 ML ONE (17:28)
[2019-09-08 17:39] LABS: Bicarbonate 25 mmol/L (21-32); Glucose Level 82 mg/dL (74-106); Potassium 3.5 mmol/L (3.5-5.1); Sodium Level 137 mmol/L (136-145)
[2019-09-08 17:40] LABS: BUN Blood Urea Nitrogen 8 mg/dL (7-18); HCG, Quantitative 74535 mIU/mL (1-3)
--- NOTE | 2019-09-08 18:11 | RAD REPORT ---
EXAM DESCRIPTION: US - Transvaginal OB - 09/08/2019 5:40 pm CLINICAL HISTORY: ABD CRAMPING, COMPARISON: Transvaginal OB dated 08/19/2019 FINDINGS: A single gestational sac is seen within the uterus. The shape of the sac is within normal limits for gestational age. Within the sac is a single pole with crown-rump length of 10 mm, co rrelating to estimated gestational age of 7 weeks 1 day. Estimated date of delivery is 04/25/2020. Heart rate is 136 BPM. The placenta is not yet developed due to early gestational age. Small 8 x 5 mm inferiorly located sub chorionic bleed. The maternal adnexa and right ovary are within normal limits. Left ovary was obscured by bowel gas. N ormal Doppler blood flow was demonstrated to the right ovary. IMPRESSION: Single live early intrauterine gestation with estimated gestational age of 7 weeks 1 day , DARELL 04/25/2020. Small inferiorly located subchorionic bleed.
--- NOTE | 2019-09-08 18:26 | ER ---
Nurse's Notes [facility] Name: Lorin Lyon Age: 29 yrs Sex: Female : 1990 Arrival Date: 09/08/2019 Time: 16:41 Bed 13 Private MD: Diagnosis: Threatened ;Urinary tract infection, site not specified; related conditions, unspecified, first trimester Presentation: 09/07 16:45 Chief complaint: Patient states: 7 weeks and 4 days. Bleeding on and off since ca1 discovery of . 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 Today, been bleeding heavy with clots. Coronavirus screen: The patient has NOT traveled to [place] in the past 14 days. The patient has NOT had contact with known and/or suspected case of Coronavirus. Ebola Screen: Patient negative for fever greater than or equal to 101.5 degrees Fahrenheit, and additional compatible Ebola Virus Disease symptoms Patient denies exposure to infectious person. Patient denies travel to an Ebola-affected area in the 21 days before illness onset. No symptoms or risks identified at this time. Initial Sepsis Screen: Does the patient meet any 2 criteria? No. Patient's initial sepsis screen is negative. Does the patient have a suspected source of infection? No. Patient's initial sepsis screen is negative. Risk Assessment: Do you want to hurt yourself or someone else? Patient reports no desire to harm self or others. Onset of symptoms was September 08, 2019. Care prior to arrival: None. 16:45 Acuity: PATRICIA 3 ca1 16:45 Method Of Arrival: Ambulatory ca1 Triage Assessment: 17:01 General: Appears in no apparent distress. comfortable, Behavior is calm, cooperative, ca1 appropriate for age. Pain: Complains of pain in suprapubic area Pain does not radiate. Pain currently is 3 out of 10 on a pain scale. EENT: No signs and/or symptoms were reported regarding the EENT system. Neuro: Level of Consciousness is awake, alert, obeys commands, Oriented to person, place, time, situation, Appropriate for age. Cardiovascular: Heart tones S1 S2 present Capillary refill < 3 seconds Patient's skin is warm and dry. Respiratory: Airway is patent Respiratory effort is even, unlabored, Respiratory pattern is regular, symmetrical, Breath sounds are clear bilaterally. GI: Abdomen is round non-distended, Bowel sounds present X 4 quads. Abd is soft and non tender X 4 quads. : Urine is clear, Reports vaginal bleeding that is bright red, with clots, moderate flow. Derm: Skin is intact, is healthy with good turgor, Skin is pink, warm \T\ dry. Musculoskeletal: Circulation, motion, and sensation intact. Capillary refill < 3 seconds, Range of motion: intact in all extremities. 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 - Social history:: Smoking status: Patient reports the use of cigarette tobacco products, denies chronic smoking, but will smoke occasionally. - Family history:: not pertinent. Screenin:00 Abuse screen: Denies threats or abuse. Denies injuries from another. Nutritional ca1 screening: No deficits noted. Tuberculosis screening: No symptoms or risk factors identified. Fall Risk IV access (20 points). Assessment: 17:00 Reassessment: SEE triage assessment. ca1 17:15 Reassessment: US at bedside. ca1 18:04 Reassessment: Patient appears in no apparent distress at this time. Patient and/or ca1 family updated on plan of care and expected duration. Pain level reassessed. Patient is alert, oriented x 3, equal unlabored respirations, skin warm/dry/pink. 18:38 Reassessment: Patient appears in no apparent distress at this time. Patient is alert, ca1 oriented x 3, equal unlabored respirations, skin warm/dry/pink. Vital Signs: 16:45 BP 125 / 72; Pulse 82; Resp 16 S; Temp 98.2(O); Pulse Ox 100% on R/A; Weight 67.13 kg ca1 (R); Height 5 ft. 6 in. (167.64 cm) (R); Pain 2/10; 18:04 BP 110 / 58; Pulse 67; Resp 17 S; Pulse Ox 100% on R/A; ca1 18:38 BP 113 / 62; Pulse 71; Resp 16 S; Pulse Ox 100% on R/A; ca1 16:45 Body Mass Index 23.89 (67.13 kg, 167.64 cm) ca1 ED Course: 16:41 Patient arrived in ED. as 16:44 Frank Hurtado MD is Attending Physician. pj 16:50 No provider procedures requiring assistance completed. Initial lab(s) drawn, by ga, ca1 sent to lab. Inserted saline lock: 20 gauge in right antecubital area, using aseptic technique. Blood collected. 16:56 Kaycee Beck, RN is Primary Nurse. ca1 16:57 Urine collected: clean catch specimen, clear. kj1 17:00 Triage completed. ca1 17:01 Arm band placed on right wrist. ca1 17:02 Patient has correct armband on for positive identification. Placed in gown. Bed in low ca1 position. Call light in reach. Side rails up X 1. Pulse ox on. NIBP on. Warm blanket given. 17:40 Ultrasound completed. Patient tolerated well. sg3 17:40 US Transvaginal Ob In Process Unspecified. EDVA 18:25 Natalio Diamond MD is Referral Physician. pj 18:40 IV discontinued, intact, bleeding controlled, No redness/swelling at site. Pressure ca1 dressing applied. Administered Medications: 17:00 Drug: NS 0.9% 1000 ml Route: IV; Rate: 1 bolus; Site: right antecubital; ca1 18:00 Follow up: Response: No adverse reaction; IV Status: Completed infusion ca1 Point of Care Testing: Urine : 17:01 hCG Reading: Positive; ca1 Outcome: 18:25 Discharge ordered by . pj 18:40 Discharged to home ambulatory, with significant other. ca1 18:40 Condition: stable 18:40 Discharge instructions given to patient, Instructed on discharge instructions, follow up and referral plans. medication usage, Demonstrated understanding of instructions, follow-up care, medications, Prescriptions given X 2. 18:43 Patient left the ED. ca1 Signatures: Dispatcher [employer] EDVA Frank Hurtado MD MD cha Martinez, Amelia as Godinez, Sarah sg3 Kaycee Beck, PRABHA RN ca1 Licha Tran kj1
--- NOTE | 2019-09-08 18:26 | EDPHYS ---
Physician Documentation [facility] Name: Lorin Lyon Age: 29 yrs Sex: Female : 1990 Arrival Date: 09/08/2019 Time: 16:41 Bed 13 Private MD: ILA Physician Frank Hurtado HPI: 09/07 16:51 This 29 yrs old Female presents to ER via Unassigned with complaints of pj Vaginal Bleeding, + Preg <12wks. 16:51 The patient presents to the emergency department with abdominal pain, vaginal bleeding. jp The estimated gestational age is 7 weeks. course: care: at a clinic. Associated signs and symptoms: The patient has no apparent associated signs or symptoms. The patient has experienced similar episodes in the past, a few times. 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 - Social history:: Smoking status: Patient reports the use of cigarette tobacco products, denies chronic smoking, but will smoke occasionally. - Family history:: not pertinent. ROS: 16:51 Constitutional: Negative for fever, chills, and weight loss, Eyes: Negative for injury, pj pain, redness, and discharge, ENT: Negative for injury, pain, and discharge, Neck: Negative for injury, pain, and swelling, Cardiovascular: Negative for chest pain, palpitations, and edema, Respiratory: Negative for shortness of breath, cough, wheezing, and pleuritic chest pain, Abdomen/GI: Negative for abdominal pain, nausea, vomiting, diarrhea, and constipation, Back: Negative for injury and pain, MS/Extremity: Negative for injury and deformity, Skin: Negative for injury, rash, and discoloration, Neuro: Negative for headache, weakness, numbness, tingling, and seizure, Psych: Negative for depression, anxiety, suicide ideation, homicidal ideation, and hallucinations, Allergy/Immunology: Negative for hives, rash, and allergies, Endocrine: Negative for neck swelling, polydipsia, polyuria, polyphagia, and marked weight changes. 16:51 : Positive for pelvic pain, vaginal bleeding. Exam: 16:51 Constitutional: This is a well developed, well nourished patient who is awake, alert, pj and in no acute distress. Head/Face: Normocephalic, atraumatic. Eyes: Pupils equal round and reactive to light, extra-ocular motions intact. Lids and lashes normal. Conjunctiva and sclera are non-icteric and not injected. Cornea within normal limits. Periorbital areas with no swelling, redness, or edema. ENT: Nares patent. No nasal discharge, no septal abnormalities noted. Tympanic membranes are normal and external auditory canals are clear. Oropharynx with no redness, swelling, or masses, exudates, or evidence of obstruction, uvula midline. Mucous membranes moist. Neck: Trachea midline, no thyromegaly or masses palpated, and no cervical lymphadenopathy. Supple, full range of motion without nuchal rigidity, or vertebral point tenderness. No Meningismus. Chest/axilla: Normal chest wall appearance and motion. Nontender with no deformity. No lesions are appreciated. Cardiovascular: Regular rate and rhythm with a normal S1 and S2. No gallops, murmurs, or rubs. Normal PMI, no JVD. No pulse deficits. Respiratory: Lungs have equal breath sounds bilaterally, clear to auscultation and percussion. No rales, rhonchi or wheezes noted. No increased work of breathing, no retractions or nasal flaring. Abdomen/GI: Soft, non-tender, with normal bowel sounds. No distension or tympany. No guarding or rebound. No evidence of tenderness throughout. Back: No spinal tenderness. No costovertebral tenderness. Full range of motion. Skin: Warm, dry with normal turgor. Normal color with no rashes, no lesions, and no evidence of cellulitis. MS/ Extremity: Pulses equal, no cyanosis. Neurovascular intact. Full, normal range of motion. Neuro: Awake and alert, GCS 15, oriented to person, place, time, and situation. Cranial nerves II-XII grossly intact. Motor strength 5/5 in all extremities. Sensory grossly intact. Cerebellar exam normal. Normal gait. Psych: Awake, alert, with orientation to person, place and time. Behavior, mood, and affect are within normal limits. Vital Signs: 16:45 BP 125 / 72; Pulse 82; Resp 16 S; Temp 98.2(O); Pulse Ox 100% on R/A; Weight 67.13 kg ca1 (R); Height 5 ft. 6 in. (167.64 cm) (R); Pain 2/10; 18:04 BP 110 / 58; Pulse 67; Resp 17 S; Pulse Ox 100% on R/A; ca1 18:38 BP 113 / 62; Pulse 71; Resp 16 S; Pulse Ox 100% on R/A; ca1 16:45 Body Mass Index 23.89 (67.13 kg, 167.64 cm) ca1 MDM: 16:44 Patient medically screened. [facility] 16:52 Data reviewed: vital signs, nurses notes, lab test result(s), radiologic studies, pj ultrasound. 09/07 16:45 Order name: Quantitative Hcg; Complete Time: 18:[address] [facility] 09/07 16:45 Order name: Abo/rh Typing; Complete Time: 18:[address] [facility] 09/07 16:45 Order name: Basic Metabolic Panel; Complete Time: 18:[address] [facility] 09/07 16:45 Order name: CBC with Diff; Complete Time: 17:[address] [facility] 09/07 16:59 Order name: Urine Dipstick--Ancillary (enter results); Complete Time: 17:27 [facility] 09/07 16:59 Order name: Urine --Ancillary (enter results) [facility] 09/07 16:45 Order name: Urine Test (obtain specimen); Complete Time: 16:[address] [facility] 09/07 16:45 Order name: IV Saline Lock; Complete Time: 16:[address] [facility] 09/07 16:45 Order name: Labs collected and sent; Complete Time: 16:[address] [facility] 09/07 16:45 Order name: NPO; Complete Time: 16:[address] [facility] 09/07 16:45 Order name: Urine Dipstick-Ancillary (obtain specimen); Complete Time: 16:[address] [facility] 09/07 16:45 Order name: US Transvaginal Ob [facility] 09/07 18:25 Order name: Urine Culture [facility] Administered Medications: 17:00 Drug: NS 0.9% 1000 ml Route: IV; Rate: 1 bolus; Site: right antecubital; ca1 18:00 Follow up: Response: No adverse reaction; IV Status: Completed infusion ca1 Point of Care Testing: Urine : 17:01 hCG Reading: Positive; ca1 Disposition: 09/08/19 18:25 Discharged to Home. Impression: Threatened , Urinary tract infection, site not specified, related conditions, unspecified, first trimester. - Condition is Stable. - Discharge Instructions: Threatened Miscarriage, Urinary Tract Infection, Adult, Vaginal Bleeding During , First Trimester, First Trimester of , [id number], Urinary Tract Infection, Adult, [id number], First Trimester of , Threatened Miscarriage, [id number], Pelvic Rest. - Prescriptions for Keflex 500 mg Oral Capsule - take 1 capsule by ORAL route every 6 hours for 5 days; 20 capsule. Vitamin 27- 0.8 mg Oral Tablet - take 1 tablet by ORAL route once daily; 30 tablet. - Medication Reconciliation Form, Thank You Letter, Antibiotic Education, Prescription Opioid Use form. - Follow up: Private Physician; When: 1 - 2 days; Reason: Recheck today's complaints, Continuance of care, Re-evaluation by your physician. Follow up: Natalio Diamond MD; When: 2 - 3 days; Reason: Recheck today's complaints, Re-evaluation by your physician. - Problem is new. - Symptoms have improved. Signatures: Dispatcher [employer] EDFrank Gonzalez MD MD cha Acob, Cheryl RN RN ca1 Corrections: (The following items were deleted from the chart) 18:26 18:25 09/08/2019 18:25 Discharged to Home. Impression: Threatened . Condition pj is Stable. Forms are Medication Reconciliation Form, Thank You Letter, Antibiotic Education, Prescription Opioid Use. Follow up: Private Physician; When: 1 - 2 days; Reason: Recheck today's complaints, Continuance of care, Re-evaluation by your physician. Problem is new. Symptoms have improved. pj 18:26 18:26 09/08/2019 18:25 Discharged to Home. Impression: Threatened . Condition pj is Stable. Forms are Medication Reconciliation Form, Thank You Letter, Antibiotic Education, Prescription Opioid Use. Follow up: Private Physician; When: 1 - 2 days; Reason: Recheck today's complaints, Continuance of care, Re-evaluation by your physician. Follow up: Natalio Diamond; When: 2 - 3 days; Reason: Recheck today's complaints, Re-evaluation by your physician. Problem is new. Symptoms have improved. [facility] 18:26 18:26 09/08/2019 18:25 Discharged to Home. Impression: Threatened ; Urinary pj tract infection, site not specified. Condition is Stable. Forms are Medication Reconciliation Form, Thank You Letter, Antibiotic Education, Prescription Opioid Use. Follow up: Private Physician; When: 1 - 2 days; Reason: Recheck today's complaints, Continuance of care, Re-evaluation by your physician. Follow up: Natalio Diamond; When: 2 - 3 days; Reason: Recheck today's complaints, Re-evaluation by your physician. Problem is new. Symptoms have improved. [facility] 18:43 18:26 09/08/2019 18:25 Discharged to Home. Impression: Threatened ; Urinary ca1 tract infection, site not specified; related conditions, unspecified, first trimester. Condition is Stable. Forms are Medication Reconciliation Form, Thank You Letter, Antibiotic Education, Prescription Opioid Use. Follow up: Private Physician; When: 1 - 2 days; Reason: Recheck today's complaints, Continuance of care, Re-evaluation by your physician. Follow up: Natalio Diamond; When: 2 - 3 days; Reason: Recheck today's complaints, Re-evaluation by your physician. Problem is new. Symptoms have improved. pj
[2019-09-08 19:36] VITALS: TEMP 98.2; O2SAT 100
[2019-09-08 19:38] VITALS: BP 113/62
== END 2019-09-08 18:43 | disposition home or self-care (01) ==
LOC: ER 16:37
DX: O20.0 Threatened abortion (principal); Z3A.01 Less than 8 weeks gestation of pregnancy; O23.41 Unspecified infection of urinary tract in pregnancy, first trimester
CPT/HCPCS: 87088; 85025; 87086; 80048; 36415; 86900; 81025; 86901; 84702; 81003; 76817; 96360; 99284; J7030

== ENCOUNTER 2023-02-28 16:50 | Emergency (ER) | payer BC, OTHER ==
--- OUTSIDE RECORDS SUMMARY | 2023-02-28 16:53 | XMS REPORT | Continuity of Care Document ---
:1990 Author Organization [facility] t Address [address] [place] [address] [place] [id number] Care Team Providers Name Role Phone Zakiya Lanier Primary Care Physician Lupillo Garcia Attending Clinician Unavailable Lupillo Garcia Attending Clinician Unavailable Niesha Steele RN Attending Clinician Unavailable ARELIS CRAWLEY Attending Clinician Unavailable ELAN PLAZA Attending Clinician Unavailable Shay Vega MD Attending Clinician SHAY VEGA Attending Clinician Unavailable SHAY VEGA Attending Clinician Unavailable Arelis Crawley PA-C Attending Clinician Zakiya Lanier Attending Clinician Lab, Ang - Db Attending Clinician Unavailable ZAKIYA RODRIGUEZ Attending Clinician Unavailable ALE VIDES Attending Clinician Unavailable Celestina Rainey MD Attending Clinician CELESTINA RAINEY Attending Clinician Unavailable Doctor Unassigned, [place] Attending Clinician Unavailable Sonny Jean-Baptiste Attending Clinician Homero Russo MD Attending Clinician Randy Burrell DO Attending Clinician Raul Coughlin MD Attending Clinician Audi Luis MD Attending Clinician PARESH Attending Clinician Unavailable Paloma Attending Clinician Unavailable Kay Dinh Attending Clinician [phone] KAY MORATAYA Attending Clinician Unavailable RAUL COUGHLIN Admitting Clinician Unavailable VIMAL RIVERA Admitting Clinician Unavailable Michelle Iqbal Admitting Clinician Unavailable Homero Russo MD Admitting Clinician Lupillo Garcia Admitting Clinician Unavailable Raul Coughlin MD Admitting Clinician Audi Luis MD Admitting Clinician PARESH Admitting Clinician Unavailable Paloma Admitting Clinician Unavailable Payers Payer Name Policy Type Policy Number Effective Date Expiration Date Janie tijerina [facility] [id number] 2020 00:00:00 [facility] [id number] 2015 00:00:00 Problems Condition Condition Condition Status Onset Resolution Last Treating Co mments Source Name Details Category Date Date Treatment Clinician Date Mild Mild Disease Active Univers anemia anemia 4-20 ity of 00:00: [address] Leukocytos Leukocytos Disease Active U nivers is, is, 4-06 [place] of [place]specif[place] 00 [facility] Elevated Elevated Disease Active Unive rs platelet platelet 4-06 ity of count count 00:00: [address] Appendicit Appendicit Disease Active U nivers is is 8-17 ity of 00:00: [address] 34 weeks 34 weeks Disease Active Unive rs gestation gestation 9-04 ity of of of 00:00: [place] 00 [facility] Heart burn Heart burn Disease Active 2019-0 U nivers 9-04 ity of 00:00: [address] Decreased Decreased Disease Active 2019- Uni vers 9-04 [place] of movements [place] third 00 Medica l trimester trimester Bran ch Alteration Alteration Disease Active 2020-0 U nivers in comfort in comfort 03-13 [place] associated [place] with 00 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 No Known Drug Active [facility] No Known Drug Active [facility] No [facility] Drug [facility] No [facility] Drug Active [facility] No Known Drug Active [facility] No Known Drug Active [facility] No Known Drug Active . [facility] Social History Social Habit Start Date Stop Date Quantity Comments Source History of tobacco Cigarette Smoker University of use [facility] History SDHI University o f Alcohol Frequency [facility] History [facility] University o f Alcohol Std Drinks [facility] History [facility] University o f Alcohol Binge [facility] Alcohol intake 2021-11-29 2021-11-29 Current drinker Unive rsity of 00:00:00 00:00:00 of alcohol [facility] (finding) Branch Exposure to 2021-11-18 2021-11-28 Not sure University SARS-CoV-2 (event) 00:00:00 00:52:00 [facility] Cigarettes smoked 2021-10-07 2021-10-07 Univers ity of current (pack per 00:00:00 00:00:00 [facility] ) - Reported Branch Cigarette 2021-10-07 2021-10-07 University of pack-years 00:00:00 00:00:00 [facility] Tobacco use and 2021-10-07 2021-10-07 Smokeless Universit y of exposure 00:00:00 00:00:00 tobacco non-user [facility] Alcohol Comment 2015-11-29 2015-11-29 socially Universit y of 00:00:00 00:00:00 [facility] Sex Assigned At [birth year] Universit y of 00:00:00 00:00:00 [facility] Smoking Status Start Date Stop Date Source Smokes tobacco daily 2021-10-07 00:00:00 [facility]ations Ordered Filled Start Stop Current Ordering Indication Dosage Frequency Signature Comments Components Source Medication Medication Date Date Medication? Clinician (SIG) Name Name topiramate Yes 50mg Take 1 Unive rs 50 mg 6-03 tablet by ity of tablet 00:00: mouth 2 [place] ([facility] daily. 1/2 tab twice a day for 5 days then 1 tab twice a day topiramate Yes 50mg Take 1 Unive rs 50 mg 6-03 tablet by ity of tablet 00:00: mouth 2 [place] ([facility] daily. 1/2 tab twice a day for 5 days then 1 tab twice a day topiramate 2021-0 Yes [id number] 25mg Take 1 Univers 25 mg 5-23 tablet by ity of tablet 00:00: mouth 2 [place] [address] ([facility] daily. After 5 days, may take 2 PO BID. topiramate 2021-0 Yes [id number] 25mg Take 1 Univers 25 mg 5-23 tablet by ity of tablet 00:00: mouth 2 [place] ([facility] daily. After 5 days, may take 2 PO BID. Fluocinolon 2021-0 Yes [id number] Apply 4 Univers e Acetonide 5-16 drops to ity of Oil 00:00: both ears [place] (DERMOTIC 00 twice Medical OIL) 0.01 % daily for [facility] otic drops 2 weeks, then at bedtime for 2 weeks, then as needed for ear itching Fluocinolon 2021-0 Yes [id number] Apply 4 Univers e Acetonide 5-16 drops to ity of Oil 00:00: both ears [place] (DERMOTIC 00 twice Medical OIL) 0.01 % daily for Bra nch otic drops 2 weeks, then at bedtime for 2 weeks, then as needed for ear itching Vital Signs Vital Name Observation Time Observation Value Comments Source Weight Dosing 2020-04-10 05:19:01 Height/Length Measured 2020-04-10 05:19:01 Height/Length Measured 2021-07-27 12:45:24 162.56 cm Weight Dosing 2021-07-27 12:45:24 77.11 kg Height/Length Measured 2021-07-27 12:43:13 162.56 cm Weight Dosing 2021-07-27 12:43:13 77.11 kg Height/Length Measured 2021-07-27 12:41:48 162.56 cm Weight Dosing 2021-07-27 12:41:48 77.11 kg Height/Length Measured 2021-07-27 12:41:07 162.56 cm Weight Dosing 2021-07-27 12:41:07 77.11 kg Height/Length Measured 2021-07-27 12:40:51 162.56 cm Weight Dosing 2021-07-27 12:40:51 77.11 kg Height/Length Measured 2021-07-27 12:40:47 162.56 cm Weight Dosing 2021-07-27 12:40:47 77.11 kg Height/Length Measured 2021-07-27 12:40:46 162.56 cm Weight Dosing 2021-07-27 12:40:46 77.11 kg Height/Length Measured 2021-07-27 12:40:21 162.56 cm Weight Dosing 2021-07-27 12:40:21 77.11 kg Height/Length Measured 2020-04-04 00:55:16 Height/Length Measured 2021-07-27 13:22:56 163 cm Weight Dosing 2021-07-27 13:22:56 77.10 kg Height/Length Measured 2021-07-27 12:36:28 163 cm Weight Dosing 2021-07-27 12:36:28 77.10 kg Height/Length Measured 2021-07-27 12:36:13 163 cm Weight Dosing 2021-07-27 12:36:13 77.10 kg Height/Length Measured 2021-07-27 12:36:12 163 cm Weight Dosing 2021-07-27 12:36:12 77.10 kg Height/Length Measured 2021-07-27 12:36:11 163 cm Weight Dosing 2021-07-27 12:36:11 77.10 kg Height/Length Measured 2021-07-27 12:34:18 163 cm Weight Dosing 2021-07-27 12:34:18 77.10 kg Height/Length Measured 2021-07-27 12:34:14 163 cm Weight Dosing 2021-07-27 12:34:14 77.10 kg Weight Dosing 2021-07-27 12:20:27 76.5 kg Weight Dosing 2021-07-27 12:20:24 76.5 kg Weight Dosing 2021-07-27 12:20:23 76.5 kg Weight Dosing 2020-03-21 00:29:02 Procedures This patient has no known procedures. Encounters Start End Encounter Admission Attending Care Care Encounter Source Date/Time Date/Time Type Type Clinicians Facility Department ID 2021-05-10 Emergency [facility] [id number] Univers 15:58:14 ity [facility] 2021-05-07 Outpatient P [facility] DARIO [id number] Univers 16:06:03 ity [facility] 2021-05-07 Outpatient P [facility] [id number] Univers 07:33:53 ity [facility] 2020-04-10 Inpatient 3 Lupillo Garcia [facility] OBA [id number] 04:19:00 Lupillo Garcia - [address] [place] [address] 2022-03-11 2022-03-11 Telephone Cedric KEITH [id number] Univers 00:00:00 00:00:00 , Niesha GARCIA [id number] ity [facility] [id number] [place] [id number] [place] [address] Branch 2022-01-04 2022-01-04 Outpatient R MISBAH [facility] [id number] Univers 11:15:00 11:15:00 ARELIS itdao [facility] 2022-01-03 2022-01-03 Outpatient R IVELISSE [facility] [id number] Univers 10:45:00 10:45:00 aj LAYNEy of [facility] 2021-12-09 2021-12-09 Telephone Silvia [facility] [id number] Univers 00:00:00 00:00:00 Shay [facility] [id number] ity of [place] [id number] Héctor as ALFREDO?BLEA [id number] [address] MEDICAL OFFICE BUILDING 2021-11-29 2021-11-29 Office Silvia [facility] [id number] Univers 10:00:00 10:38:42 Visit Shay [facility] [id number] ity of [place] 4.2.7.2.686 Héctor as ALFREDO?BLEA [id number] [address] OFFICE [facility] 2021-11-29 2021-11-29 Outpatient R SILVIA SHAY [facility] [id number] Univers 10:00:00 10:38:42 SILVIA SHAY kristyn [facility] 2021-11-29 2021-11-29 Outpatient R SILVIASHAY Richardson [facility] [id number] Univers 10:00:00 10:00:00 SILVIA SHAY kristyn [facility] 2021-11-22 2021-11-22 Office Misbah [facility] 1.2.840.114 [id number] Univers 13:00:00 13:30:00 Visit Arelis GEORGE [id number] i ty [facility] [place].2.686 [place] [id number] [address] 2021-11-22 2021-11-22 Outpatient Lisa CRAWLEY [facility] [id number] Univers 13:00:00 13:00:00 ARELIS simons [facility] 2021-11-22 2021-11-22 Outpatient Lisa CRAWLEY [facility] [id number] Univers 13:00:00 13:00:00 ARELIS [facility] 2021-10-27 2021-10-27 [facility] [id number] Univers 00:00:00 00:00:00 Zakiya Ramesh HEALTH [id number] i ty of [place] 4.2.7.2.686 Héctor as ALFREDO?BLEA [id number] Az zara JARQUIN 044 [facility] OFFICE [facility] 2021-10-21 2021-10-21 Telephone Sales Agent Lab, Ang - Db [facility] [id number] Univers 12:00:00 12:15:00 Visit Michael Zakiya Ramesh HEALTH [id number] ity of [place] 4.2.7.2.686 Héctor as ALFREDO?BLEA [id number] Az zara PAULA 353 [facility] OFFICE [facility] 2021-10-21 2021-10-21 Office [facility] [id number] Univers 11:30:00 12:00:00 Visit Zakiya Ramesh HEALTH [id number] i ty [facility] 4.2.7.2.686 Héctor as ALFREDO?BLEA [id number] [address] 2021-10-21 2021-10-21 [facility] [id number] Univers 11:30:00 11:30:00 ZAKIYA simons [facility] 2021-10-21 2021-10-21 [facility] [id number] Univers 11:30:00 11:30:00 ZAKIYA simons [facility] 2021-10-19 2021-10-19 Outpatient R PEEWEE [facility] [id number] Univers 08:45:00 08:45:00 ALE kristyn [facility] 2021-10-13 2021-10-13 Telephone [facility] [id number] Univers 00:00:00 00:00:00 Zakiya Ramesh HEALTH [id number] i ty of [place] 4.2.7.2.686 Héctor as ALFREDO?BLEA [id number] Az joeymd NISA 044 [facility] OFFICE [facility] 2021-10-08 2021-10-08 Telephone Sales Agent Lab, Ang - Db [facility] [id number] Univers 11:00:00 11:15:00 Visit Zakiya Rodriguez [id number] ity of [place] 4.2.7.2.686 Héctor as ALFREDO?BLEA [id number] Az zara JARQUIN 353 [facility] OFFICE [facility] 2021-10-08 2021-10-08 Outpatient R MICHAEL [facility] [id number] Univers 11:00:00 11:00:00 ZAKIYA [facility] 2021-10-08 2021-10-08 [facility] [id number] Univers 11:00:00 11:00:00 ZAKIYA [facility] 2021-10-07 2021-10-07 [facility] [id number] Univers 13:30:00 14:15:08 ZAKIYA [facility] 2021-10-07 2021-10-07 Office [facility] 1.2.840.114 [id number] Univers 13:30:00 14:15:08 Visit Zakiya ZEPEDA 350.1.13.10 i ty of [place] 4.2.7.2.686 Héctor as ALFREDO?BLEA [id number] Az zara JARQUIN 044 [facility] OFFICE [facility] 2021-10-07 2021-10-07 [facility] [id number] Univers 13:30:00 [facility]:15:[facility] 2021-03-02 Office [facility] [id number] Univers 14:17:55 15:04:41 Visit Celestina L[place] Delmy 350.1.13.10 i ty [place] Profess[place] [id number] Az zara shaw 419 [facility] 2021-03-02 2021-03-02 [facility] [id number] Univers 14:30:00 14:30:00 CELESTINA [facility] 2021-03-02 2021-03-02 Orders Doctor BONE 1.2.840.114 [id number] Univers 00:00:00 00:00:00 Only Unassigned, SOULEYMANE 350.1.13.10 ity of [place] [facility] 4.2.7.2.686 Héctor as [id number] [address] 2021-03-02 2021-03-02 Orders Doctor LIZANDRO 1.2.840.114 [id number] Univers 00:00:00 00:00:00 Only Unassigned, SOULEYMANE 350.1.13.10 ity of [place] [facility] 4.2.7.2.686 Héctor as [id number] [address] 2021-02-24 2021-02-24 Telephone [facility] 1.2.840.114 [id number] Univers 00:00:00 00:00:00 Celestina Brock 350.1.13.10 i ty of [place] [id number] [facility] 2021-02-22 2021-02-23 Emergency Sonny Uribe [facility] 1.2.840.1 [id number] Univers 22:50:00 10:38:00 Homero Russo 350.1.13.10 ity of [place]2.[place].2.[place] [id number] [facility] [address] [place] 2021-02-23 2021-02-23 Surgery [facility] [id number] Univers 08:00:00 10:37:00 Celestina Brock 350.1.13.10 i ty of [place]2.[place].2.[place] [id number] [facility] [address] [place] 2021-02-22 2021-02-22 Orders Doctor LIZANDRO 1.2.840.114 [id number] Univers 00:00:00 00:00:00 Only Unassigned, SOULEYMANE 350.1.13.10 ity of [place] [facility] 4.2.7.2.686 Héctor as [id number] [address] 2020-09-29 2020-09-29 Patient [facility] 1.2.840.114 [id number] Univers 00:00:00 00:00:00 Outreach [facility] 350.1.13.10 i ty of [facility] 4.2.7.2.686 [facility] [id number] [place] [address] [place] 2020-04-10 2020-04-11 Inpatient 3 [place] [facility] [id number]. 04:19:00 14:44:00 [facility] 2020-04-04 2020-04-04 Outpatient [facility] OBA [id number] St. 23:12:00 23:12:00 [facility]2019 925 [facility] 2020-04-03 2020-04-04 Outpatient 3 [facility] OBA [id number] [facility]. 23:12:00 01:40:00 [facility] 2020-03-21 2020-03-21 Outpatient 3 [facility] OBA [id number] [address]. 00:16:00 05:20:00 [facility] 2020-03-21 2020-03-21 Outpatient [facility] OBA [id number] St. 00:16:00 00:16:00 [facility]2019 911 [facility] 2020-03-13 2020-03-13 [facility] Raul Coughlin [facility] 1.2.840.114 [id number] Univers 17:41:00 20:35:00 Encounter [place] 350.1.13.10 ity of [place] 4.2.7.[address] [place] [id number] 2020-01-27 2020-01-27 [facility] 1.2.840.114 [id number] Univers 03:02:00 06:50:00 Encounter Audi Brock 350.1.13.10 ity of [place] 4.2.7.2.[address] [place] [id number] 2020-01-15 2020-01-15 Outpatient ROMAINEMAR [facility] [id number] [place] 02:20:00 02:20:00 [place] [id number] da [facility] 2020-01-14 2020-01-14 [facility] [id number] [place] 03:21:00 03:21:00 [place] [id number] da [facility] 2019-09-02 2019-09-02 Outpatient [facility] [id number] [place] 05:06:00 05:06:00 [id number] [facility] 2019-08-12 2019-08-12 [facility] 1.2.840.114 [id number] [facility] 00:00:00 00:00:00 Kay Buchanan FIELD MARKETING REPRESENTATIVE 350.1.13.10 ity of REGIONAL 4.2.7.2.686 Héctor as MATERNAL [id number] Med ical & CHILD [address] [place] [address] 2019-08-09 2019-08-09 [facility] [id number] Univers 13:30:00 14:16:47 KAY simons o f [facility] Results Test Description Test Time Test Comments Results Result Comments Source RPR Qualitative 2020-04-10 19:10:01 Test Item Value Reference Range Interpretation Comme nts RPR Qual (test code = RPR Qual) Non-Reactive Non-Reactive Reactive Control (test code = Reactive Control) Reactive Weak Reactive Control (test code = Weak Reactive Weak Reactive Control) Non-Reactive Control (test code = Non-Reactive Non-Reactive Control) Lot # (test code = Lot #) [id number] Expiration Dt (test code = Expiration Dt) 9.30.21 N ABORh [id number] 18:59:40 Test Item Value Reference Range Interpretation Comments Methodology (test code = Test-Tube(TT) Methodology) Anti-A (test code = Anti-A) 0 Anti-B (test code = Anti-B) 0 Anti-AB (test code = Anti-AB) NT Anti-D (test code = Anti-D) 4+ ABORh Retype (test code = ABORh O POS Retype) Hemoglobin and [id number] 17:46:24 Test Item Value Reference Range Interpretation Comments Hgb (test code = Hgb) 11.4 g/dL 12.2-14.8 L Hct (test code = Hct) 34.6 % 36.5-44.4 L ABORh [id number] 12:28:56 Test Item Value Reference Range Interpretation Comments Methodology (test code = Test-Tube(TT) Methodology) Anti-A (test code = Anti-A) 0 Anti-B (test code = Anti-B) 0 Anti-AB (test code = Anti-AB) NT Anti-D (test code = Anti-D) 4+ ABORh Retype (test code = ABORh O POS Retype) 3C ABSC [id number] 07:00:55 Test Item Value Reference Range Interpretation Comments SC1 IS (test code = SC1 IS) NT SC2 IS (test code = SC2 IS) NT SC3 IS (test code = SC3 IS) NT SC1 37 (test code = SC1 37) 0 SC2 37 (test code = SC2 37) 0 SC3 37 (test code = SC3 37) 0 SC1 AHG (test code = SC1 AHG) 0 SC2 AHG (test code = SC2 AHG) 0 SC3 AHG (test code = SC3 AHG) 0 SC1 CC (test code = SC1 CC) 3+ SC2 CC (test code = SC2 CC) 3+ SC3 CC (test code = SC3 CC) 3+ Antibody Screen (3C) (test code Negative ABSC = Antibody Screen (3C)) [id number] 06:45:45 Test Item Value Reference Range Interpretation Comments Previous History (test code = No Prev History Previous History) BBID (test code = BBID) [id number] Methodology (test code = Test-Tube(TT) Methodology) Anti-A (test code = Anti-A) 0 Anti-B (test code = Anti-B) 0 Anti-D (test code = Anti-D) 4+ DCon (test code = DCon) NT A1 (test code = A1) 4+ B cells (test code = B cells) 4+ ABORh (test code = ABORh) O POS Comprehensive Metabolic [id number] 06:40:13 Test Item Value Reference Range Interpretation Comments Sodium Level (test code = Sodium 139.0 mmol/L 136.0-145.0 Level) Potassium Level (test code = 4.10 mmol/L 3.50-5.10 Potassium Level) Chloride Level (test code = 104.0 mmol/L 98.0-107.0 Chloride Level) CO2 (test code = CO2) 22 mmol/L 20-31 Anion Gap (test code = Anion 13.0 mmol/L 5.0-15.0 Gap) BUN (test code = BUN) 6 mg/dL 9-23 L Creatinine Level (test code = 0.51 mg/dL 0.55-1.02 L Creatinine Level) BUN/Creat Ratio (test code = 11.8 ratio 10.0-20.0 BUN/Creat Ratio) Glucose Level (test code = 81 mg/dL 74-106 Glucose Level) Calcium Level (test code = 9.1 mg/dL 8.3-10.6 Calcium Level) Alk Phos (test code = Alk Phos) 168 U/L 46-116 H Bilirubin Total (test code = 0.3 mg/dL 0.2-1.1 Bilirubin Total) Albumin Level (test code = 4.2 g/dL 3.2-4.8 Albumin Level) Protein Total (test code = 6.2 g/dL 5.7-8.2 Protein Total) ALT (test code = ALT) 13 U/L 10-49 AST (test code = AST) 16 U/L <=34 Globulin (test code = Globulin) 2.0 g/dL 2.3-3.5 L A/G Ratio (test code = A/G 2.1 g/dL 0.8-2.0 H Ratio) Hemolysis (test code = 0 g/dL 1-2 H Hemolysis) Icterus (test code = Icterus) 0 g/dL 1-2 H Lipemia (test code = Lipemia) 0 g/dL 1-2 H Comprehensive Metabolic [id number] 06:40:13 Test Item Value Reference Range Interpretation Comments Sodium Level (test 139.0 mmol/L 136.0-145.0 code = Sodium Level) Potassium Level 4.10 mmol/L 3.50-5.10 (test code = Potassium Level) Chloride Level (test 104.0 mmol/L 98.0-107.0 code = Chloride Level) CO2 (test code = 22 mmol/L 20-31 CO2) Anion Gap (test code 13.0 mmol/L 5.0-15.0 = Anion Gap) BUN (test code = 6 mg/dL 9-23 L BUN) Creatinine Level 0.51 mg/dL 0.55-1.02 L (test code = Creatinine Level) BUN/Creat Ratio 11.8 ratio 10.0-20.0 (test code = BUN/Creat Ratio) Glucose Level (test 81 mg/dL 74-106 code = Glucose Level) Calcium Level (test 9.1 mg/dL 8.3-10.6 code = Calcium Level) Alk Phos (test code 168 U/L 46-116 H = Alk Phos) Bilirubin Total 0.3 mg/dL 0.2-1.1 (test code = Bilirubin Total) Albumin Level (test 4.2 g/dL 3.2-4.8 code = Albumin Level) Protein Total (test 6.2 g/dL 5.7-8.2 code = Protein Total) ALT (test code = 13 U/L 10-49 ALT) AST (test code = 16 U/L <=34 AST) Globulin (test code 2.0 g/dL 2.3-3.5 L = Globulin) A/G Ratio (test code 2.1 g/dL 0.8-2.0 H = A/G Ratio) eGFR AA (test code = >60 >=60 eGFR (e stimated eGFR AA) mL/min/1.73 m2 Glomerular Filtration Rate ) is an estimated va lue, calculated from the patient's serum creatinine usin g the MDRD equation. It is NOT the patient 's actual GFR. The eGFR provides a more clinically usef ul measure of kidn ey disease than se rum creatinine alone.This calculation nuno es sex and race in to account, if the information is provided. If th e race is not provided, and t he patient is -Bernie n, multiply by 1.2 12. If sex is not provided, and t he patient is fema le, multiply by 0.7 42. Results for pat ients <18 years of ag e have not been validated by th e MDRD study and should be interpreted wit h caution. eGFR R esult Interpretation: eGFR > or = 60 is in the Normal RangeeGF R < 60 may mean kid avtar diseaseeGFR < 1 5 may mean kidney failure Rang es recommended by the National Kidney Foundation, http://nkdep.ni h.gov Hemolysis (test code 0 g/dL 1-2 H = Hemolysis) Icterus (test code = 0 g/dL 1-2 H Icterus) Lipemia (test code = 0 g/dL 1-2 H Lipemia) Hepatitis B Surface [id number] 06:40:13 Test Item Value Reference Range Interpretation Comments Hep Bs Ag (test code = Hep Bs Non-Reactive Non-Reactive Ag) Comprehensive Metabolic [id number] 06:40:13 Test Item Value Reference Range Interpretation Comments Sodium Level (test 139.0 mmol/L 136.0-145.0 code = Sodium Level) Potassium Level 4.10 mmol/L 3.50-5.10 (test code = Potassium Level) Chloride Level (test 104.0 mmol/L 98.0-107.0 code = Chloride Level) CO2 (test code = 22 mmol/L 20-31 CO2) Anion Gap (test code 13.0 mmol/L 5.0-15.0 = Anion Gap) BUN (test code = 6 mg/dL 9-23 L BUN) Creatinine Level 0.51 mg/dL 0.55-1.02 L (test code = Creatinine Level) BUN/Creat Ratio 11.8 ratio 10.0-20.0 (test code = BUN/Creat Ratio) Glucose Level (test 81 mg/dL 74-106 code = Glucose Level) Calcium Level (test 9.1 mg/dL 8.3-10.6 code = Calcium Level) Alk Phos (test code 168 U/L 46-116 H = Alk Phos) Bilirubin Total 0.3 mg/dL 0.2-1.1 (test code = Bilirubin Total) Albumin Level (test 4.2 g/dL 3.2-4.8 code = Albumin Level) Protein Total (test 6.2 g/dL 5.7-8.2 code = Protein Total) ALT (test code = 13 U/L 10-49 ALT) AST (test code = 16 U/L <=34 AST) Globulin (test code 2.0 g/dL 2.3-3.5 L = Globulin) A/G Ratio (test code 2.1 g/dL 0.8-2.0 H = A/G Ratio) eGFR AA (test code = >60 >=60 eGFR (e stimated eGFR AA) mL/min/1.73 m2 Glomerular Filtration Rate ) is an estimated va lue, calculated from the patient's serum creatinine usin g the MDRD equation. It is NOT the patient 's actual GFR. The eGFR provides a more clinically usef ul measure of kidn ey disease than se rum creatinine alone.This calculation nuno es sex and race in to account, if the information is provided. If th e race is not provided, and t he patient is -Bernie n, multiply by 1.2 12. If sex is not provided, and t he patient is fema le, multiply by 0.7 42. Results for pat ients <18 years of ag e have not been validated by [facility] MDRD study and should be interpreted wit h caution. eGFR R esult Interpretation: eGFR > or = 60 is in the Normal RangeeGF R < 60 may mean kid avtar diseaseeGFR < 1 5 may mean kidney failure Rang es recommended by the National Kidney Foundation, http://nkdep.ni h.gov eGFR Non-AA (test >60.00 >=60.00 eGFR (basilia mated code = eGFR Non-AA) mL/min/1.73 m2 Glomer ular Filtration Rate ) is an estimated va lue, calculated from the patient's serum creatinine usin g the MDRD equation. It is NOT the patient 's actual GFR. The eGFR provides a more clinically usef ul measure of kidn ey disease than se rum creatinine alone.This calculation nuno es sex and race in to account, if the information is provided. If th e race is not provided, and t he patient is -Bernie n, multiply by 1.2 12. If sex is not provided, and t he patient is fema le, multiply by 0.7 42. Results for pat ients <18 years of ag e have not been validated by [facility] MDRD study and should be interpreted wit h caution. eGFR R esult Interpretation: eGFR > or = 60 is in the Normal RangeeGF R < 60 may mean kid avtar diseaseeGFR < 1 5 may mean kidney failure Rang es recommended by the National Kidney Foundation, http://nkdep.ni h.gov Hemolysis (test code 0 g/dL 1-2 H = Hemolysis) Icterus (test code = 0 g/dL 1-2 H Icterus) Lipemia (test code = 0 g/dL 1-2 H Lipemia) Complete Blood Count with [id number] 06:20:47 Test Item Value Reference Range Interpretation Comments WBC (test code = WBC) 19.0 x10 4.4-10.5 H RBC (test code = RBC) 4.02 x10 3.75-5.20 Hgb (test code = Hgb) 12.0 g/dL 12.2-14.8 L Hct (test code = Hct) 36.6 % 36.5-44.4 MCV (test code = MCV) 91.00 fL 80.00-100.00 MCHC (test code = 32.80 g/dL 32.00-37.50 MCHC) RDW CV (test code = 12.4 % 11.5-14.5 RDW CV) MCH (test code = MCH) 29.9 pg 27.0-32.5 Platelets (test code = 353.0 x10 140.0-440.0 Platelets) MPV (test code = MPV) 10.4 fL N Slide Review (test Auto Auto Result cr eated by code = Slide Review) GL_SJM_ SLIDE_REV_AUTO nRBC (test code = 0 N nRBC) NRBC Abs (test code = 0.00 x10 N NRBC Abs) Automated [id number] 06:20:47 Test Item Value Reference Range Interpretation Comments Neutro Auto (test code = Neutro 75.8 % 36.0-70.0 H Auto) Lymph Auto (test code = Lymph Auto) 14.8 % 12.0-44.0 [place] Auto (test code = [place] Auto) 7.7 % 0.0-11.0 Eos, Auto (test code = Eos, Auto) 0.9 % 0.0-7.0 Basophil Auto (test code = Basophil 0.2 % 0.0-2.0 Auto) Neutro Absolute (test code = Neutro 14.4 x10 1.6-7.4 H Absolute) Lymph Absolute (test code = Lymph 2.82 x10 .50-4.60 Absolute) [place] Absolute (test code = [place] 1.47 x10 .00-1.20 H Absolute) Eos Absolute (test code = Eos 0.17 x10 0.00-0.74 Absolute) Baso Absolute (test code = Baso 0.03 x10 0.00-0.21 Absolute) IG [id number] 06:20:47 Test Item Value Reference Range Interpretation Comments IG (test code = IG) 0.6 % 0.0-5.0 IG Abs (test code = IG Abs) 0 x10 N
[2023-02-28] MEDS ORDERED: NA CHLORIDE 0.9% 1,000 ML ONE (17:13)
[2023-02-28] MEDS ORDERED: ONDANSETRON 4 MG/2 ML VIAL ONE (17:31)
[2023-02-28] MEDS ORDERED: MORPHINE 4 MG/ML SYR ONE (17:31)
[2023-02-28 17:39] LABS: Albumin 3.7 g/dL (3.4-5.0); Bilirubin Total 0.2 mg/dL (0.2-1.0); Potassium 3.7 mEq/L (3.5-5.1); Protein, Total 7.3 g/dL (6.4-8.2)
[2023-02-28 17:41] LABS: Specific Gravity 1.015 (1.005-1.030)
[2023-02-28 17:43] LABS: Specific Gravity 1.015 (1.005-1.030); Urine Bacteria <20 /HPF (<20); Urine Bilirubin NEGATIVE (Negative); Urine Blood 3+ (Negative); Urine Clarity Extremely Turbid (Clear); Urine Color Yellow (Yellow); Urine Crystals Unidentified Few /HPF (None Seen); Urine Glucose NEGATIVE (Negative); Urine Mucus Slight /HPF (None Seen); Urine Protein TRACE (Negative); Urine RBC >50 /HPF (None Seen); Urine Urobilinogen Normal (Normal); Urine WBC Clump Few /HPF (None Seen); Urine pH 7.5 (5.0-7.0)
[2023-02-28 17:43] LABS: Absolute Lymphocytes (CBC) 2.8 K/uL (0.7-4.9); Hematocrit 34.5 % (36.0-45.0); Lymphocytes % 21.9 % (15.3-44.8); MCV 81.4 fL (80-100); MPV 7.6 fL (7.6-11.3); Platelets 481 thou/uL (152-406); RBC Red Blood Cell Count 4.23 M/uL (3.86-4.86)
--- NOTE | 2023-02-28 18:22 | RAD REPORT ---
EXAM DESCRIPTION: CT - Stone Protocol - 02/28/2023 6:16 pm CLINICAL HISTORY: Flank pain. ABD PAIN COMPARISON: Stone Protocol dated 04/12/2018 TECHNIQUE: Axial images were obtained without oral or IV contrast. Lack of contrast limits solid org an and vascular assessment. The uqmwf-ed-[id number] spans the entirety of the system partially obscuring uppermost abdomen and lung bases. Coronal reformatted images were obtained and reviewed. All CT scans are performed using dose optimization technique as appropriate and may include automated exposure control or mA/KV adjustment according to patient size. FINDINGS: The lower lung singh are clear. Imaged portions of the liver and spleen show no suspicious findings on non-contrast imaging. The panc reas and adrenal glands are normal. No pathologic lymphadenopathy in the abdomen or pelvis. 2 mm calculus is seen at the right UVJ resulting in moderate right hydronephrosis and hydroureter. Mu ltiple additional bilateral stones in the calices bilaterally, largest posterior midpole measuring 4 mm. No bowel obstruction, free air, free fluid or abscess. Appendectomy.Moderate stool is present through out the colon. No significant bony abnormality. IMPRESSION: 2 mm calculus right UVJ resulting in moderate right hydronephrosis and hydroureter. Bilateral nephrolithiasis.
--- NOTE | 2023-02-28 18:47 | ER ---
Nurse's Notes [facility] Name: Lorin Lyon Age: 32 yrs Sex: Female : 1990 Arrival Date: 02/28/2023 Time: 16:50 Bed 15 Private MD: Diagnosis: Calculus of kidney with calculus of ureter;UTI/ Urinary tract infection, site not specified Presentation: 02/28 16:54 Chief complaint: Patient states: RLQ pain that began 1-2 hours ago. Pt reports aa5 nausea/vomiting. Pain with urination. Coronavirus screen: At this time, the client does not indicate any symptoms associated with coronavirus-19. Ebola Screen: Patient denies travel to an Ebola-affected area in the 21 days before illness onset. Risk Assessment: Do you want to hurt yourself or someone else? Patient reports no desire to harm self or others. Onset of symptoms was February 28, 2023. 16:54 Acuity: PATRICIA 3 aa5 16:54 Method Of Arrival: Ambulatory aa5 16:54 Initial Sepsis Screen: Does the patient meet any 2 criteria? No. Patient's initial aa5 sepsis screen is negative. Does the patient have a suspected source of infection? No. Patient's initial sepsis screen is negative. 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 - Social history:: Smoking status: Patient reports the use of cigarette tobacco products. Screenin:34 [facility] ED Fall Risk Assessment (Adult) History of falling in the last 3 months, mb9 including since admission No falls in past 3 months (0 pts) Confusion or Disorientation No (0 pts) Intoxicated or Sedated No (0 pts) Impaired Gait No (0 pts) Mobility Assist Device Used No (0 pt) Altered Elimination No (0 pt) Score/Fall Risk Level 0 - 2 = Low Risk Oriented to surroundings, Maintained a safe environment, Educated pt \T\ family on fall prevention, incl call for assistance when getting out of bed. Abuse screen: Denies threats or abuse. Nutritional screening: No deficits noted. Tuberculosis screening: No symptoms or risk factors identified. Assessment: 17:32 General: Appears uncomfortable, Behavior is anxious, crying. Pain: Complains of pain in mb9 abdomen Pain radiates to RLQ Pain currently is 10 out of 10 on a pain scale. Quality of pain is described as aching, throbbing, Pain began suddenly, Is continuous. Neuro: Steele Agitation-Sedation Scale (RASS): 0 - Alert and Calm Level of Consciousness is awake, alert, obeys commands, Oriented to person, place, time, situation, Appropriate for age. Cardiovascular: Patient's skin is warm and dry. Respiratory: Airway is patent Respiratory effort is even, unlabored, Respiratory pattern is regular, symmetrical. GI: Abdomen is round non-distended, Bowel sounds present X 4 quads. Abd is soft Abdomen is tender to palpation in right lower quadrant. : Urine is cloudy. : Reports discomfort when urinating. EENT: No signs and/or symptoms were reported regarding the EENT system. Derm: Skin is pink, warm \T\ dry. Musculoskeletal: Range of motion: intact in all extremities. 18:54 Reassessment: No changes from previously documented assessment. Patient and/or family mb9 updated on plan of care and expected duration. Pain level reassessed. Patient is alert, oriented x 3, equal unlabored respirations, skin warm/dry/pink. 18:54 Reassessment: discharge pending completion of fluids. mb9 19:53 Reassessment: Patient and/or family updated on plan of care and expected duration. Pain mb9 level reassessed. Patient is alert, oriented x 3, equal unlabored respirations, skin warm/dry/pink. Patient states feeling better. Patient states symptoms have improved. Vital Signs: 16:54 BP 143 / 96; Pulse 81; Resp 18 S; Temp 97.4(TE); Pulse Ox 99% on R/A; Weight 74.84 kg aa5 (R); Height 5 ft. 4 in. (R); 18:54 BP 136 / 77; Pulse 84; Resp 18; Pulse Ox 100% on R/A; mb9 19:54 BP 130 / 82; Pulse 78; Resp 16; Pulse Ox 100% on R/A; mb9 16:54 Body Mass Index 28.32 (74.84 kg, 162.56 cm) aa5 ED Course: 16:50 Patient arrived in ED. im 16:51 Nichole Tran FNP-C is [facility]. kb 16:51 Frank Hurtado MD is Attending Physician. kb 16:53 Arm band placed on. aa5 16:55 Triage completed. aa5 17:00 Inserted saline lock: 20 gauge in right antecubital area, using aseptic technique. mb9 17:03 Sun Reyes, PRABHA is Primary Nurse. mb9 17:31 CBC with Diff Sent. mb9 17:31 CMP Sent. mb9 17:31 Lipase Sent. mb9 17:31 Test, Urine Sent. mb9 17:31 Urinalysis w/ reflexes Sent. mb9 17:34 Placed in gown. Bed in low position. Call light in reach. Side rails up X 1. Client mb9 placed on continuous cardiac and pulse oximetry monitoring. NIBP monitoring applied. 17:35 No provider procedures requiring assistance completed. mb9 18:18 CT Stone Protocol In Process Unspecified. EDMS 19:54 IV discontinued, intact, bleeding controlled, No redness/swelling at site. Pressure mb9 dressing applied. Administered Medications: 17:18 Drug: NS 0.9% IV 1000 ml Route: IV; Rate: 1 bolus; Site: right antecubital; mb9 18:55 Follow up: Response: No adverse reaction; IV Status: Completed infusion mb9 17:20 Drug: Ondansetron IVP 4 mg Route: IVP; Site: right antecubital; mb9 18:55 Follow up: Response: No adverse reaction mb9 17:22 Drug: morphine IVP or IV 4 mg Route: IVP; Infused Over: 4 mins; Site: right antecubital;mb9 18:55 Follow up: Response: No adverse reaction mb9 18:40 Drug: Ketorolac IVP 15 mg Route: IVP; Site: right antecubital; mb9 18:45 Drug: Flomax PO 0.4 mg Route: PO; mb9 18:45 Drug: Rocephin IV 1 grams Route: IV; Rate: calculated rate; Site: right antecubital; mb9 18:55 Drug: Magnesium Sulfate IVPB 1 grams Route: IVPB; Infused Over: 1 hrs; Site: right mb9 antecubital; Medication: 17:35 VIS not applicable for this client. mb9 Outcome: 18:47 Discharge ordered by . korin 19:54 Discharged to home ambulatory. mb9 19:54 Condition: stable 19:54 Discharge instructions given to patient, Instructed on discharge instructions, follow up and referral plans. Demonstrated understanding of instructions, follow-up care, medications, Prescriptions given X 4. 19:55 Patient left the ED. mb9 Signatures: Dispatcher [employer] EDVT Nichole Tran, TERRENCE-C PRIMARY [place] TEACHER-Beth Diana RN RN aa5 Sun Reyes RN RN mb9 July Farnsworth
--- NOTE | 2023-02-28 18:47 | EDPHYS ---
Physician Documentation [facility] Name: Lorin Lyon Age: 32 yrs Sex: Female : 1990 Arrival Date: 02/28/2023 Time: 16:50 Bed 15 Private MD: ED Physician Frank Hurtado HPI: 02/28 23:09 This 32 yrs old Female presents to ER via Ambulatory with complaints of Abdominal Pain. kb 23:09 The patient presents with abdominal pain right lower quadrant. Onset: The kb symptoms/episode began/occurred 1 hour(s) ago. The symptoms do not radiate. Associated signs and symptoms: Pertinent positives: dysuria, nausea, Pertinent negatives: fever. The symptoms are described as sharp. Modifying factors: The symptoms are alleviated by nothing, the symptoms are aggravated by nothing. Severity of pain: At its worst the pain was moderate in the emergency department the pain is unchanged. The patient has experienced similar episodes in the past, a few times. The patient has not recently seen a physician. 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 - Social history:: Smoking status: Patient reports the use of cigarette tobacco products. ROS: 23:08 Constitutional: Negative for fever, chills, and weight loss. kb 23:08 Abdomen/GI: Positive for abdominal pain, nausea. 23:08 : Positive for flank pain, burning with urination. 23:08 All other systems are negative. Exam: 23:08 Constitutional: This is a well developed, well nourished patient who is awake, alert, kb and in no acute distress. Head/Face: Normocephalic, atraumatic. ENT: Moist Mucous membranes Cardiovascular: Regular rate and rhythm with a normal S1 and S2. No gallops, murmurs, or rubs. No pulse deficits. Respiratory: Respirations even and unlabored. No increased work of breathing. Talking in full sentences Skin: Warm, dry with normal turgor. Normal color. MS/ Extremity: Pulses equal, no cyanosis. Neurovascular intact. Full, normal range of motion. Neuro: Awake and alert, GCS 15, oriented to person, place, time, and situation. Moves all extremities. Normal gait. 23:08 Abdomen/GI: Inspection: abdomen appears normal, Bowel sounds: normal, Palpation: soft, in all quadrants, mild abdominal tenderness, in all quadrants. Vital Signs: 16:54 BP 143 / 96; Pulse 81; Resp 18 S; Temp 97.4(TE); Pulse Ox 99% on R/A; Weight 74.84 kg aa5 (R); Height 5 ft. 4 in. (R); 18:54 BP 136 / 77; Pulse 84; Resp 18; Pulse Ox 100% on R/A; mb9 19:54 BP 130 / 82; Pulse 78; Resp 16; Pulse Ox 100% on R/A; mb9 16:54 Body Mass Index 28.32 (74.84 kg, 162.56 cm) aa5 MDM: 16:51 Patient medically screened. kb 23:06 Differential diagnosis: Ectopic , non-specific abd pain, Pyelonephritis, kb Ureterolithiasis, urinary tract infection. Data reviewed: vital signs, nurses notes. Test considered but Not performed: Ultrasound US considered, but CT positive for kidney stone, positive for dysuria and history of kidney stones. Counseling: I had a detailed discussion with the patient and/or guardian regarding the historical points, exam findings, and any diagnostic results supporting the discharge/admit diagnosis, lab results, radiology results, the need for outpatient follow up, a family practitioner, a urologist, to return to the emergency department if symptoms worsen or persist or if there are any questions or concerns that arise at home. 02/28 16:57 Order name: CBC with Diff; Complete Time: 17:47 kb 02/28 16:57 Order name: CMP; Complete Time: 17:42 kb 02/28 16:57 Order name: Lipase; Complete Time: 17:42 kb 02/28 16:57 Order name: Test, Urine; Complete Time: 17:46 kb 02/28 16:57 Order name: Urinalysis w/ reflexes; Complete Time: 17:46 kb 02/28 17:47 Order name: Urine Culture EDMS 02/28 16:57 Order name: CT Stone Protocol; Complete Time: 18:24 kb 02/28 16:57 Order name: IV Saline Lock; Complete Time: 17:31 kb 02/28 16:57 Order name: Labs collected and sent; Complete Time: 17:31 kb Administered Medications: 17:18 Drug: NS 0.9% IV 1000 ml Route: IV; Rate: 1 bolus; Site: right antecubital; mb9 18:55 Follow up: Response: No adverse reaction; IV Status: Completed infusion mb9 17:20 Drug: Ondansetron IVP 4 mg Route: IVP; Site: right antecubital; mb9 18:55 Follow up: Response: No adverse reaction mb9 17:22 Drug: morphine IVP or IV 4 mg Route: IVP; Infused Over: 4 mins; Site: right antecubital;mb9 18:55 Follow up: Response: No adverse reaction mb9 18:40 Drug: Ketorolac IVP 15 mg Route: IVP; Site: right antecubital; mb9 18:45 Drug: Flomax PO 0.4 mg Route: PO; mb9 18:45 Drug: Rocephin IV 1 grams Route: IV; Rate: calculated rate; Site: right antecubital; mb9 18:55 Drug: Magnesium Sulfate IVPB 1 grams Route: IVPB; Infused Over: 1 hrs; Site: right mb9 antecubital; Disposition Summary: 02/28/23 18:47 Discharge Ordered Location: Home kb Condition: Stable kb Diagnosis - Calculus of kidney with calculus of ureter kb - UTI/ Urinary tract infection, site not specified kb Followup: kb - With: Emergency Department - When: As needed - Reason: Worsening of condition Followup: kb - With: Private Physician - When: 2 - 3 days - Reason: Recheck today's complaints, Continuance of care, Re-evaluation by your physician Discharge Instructions: - Discharge Summary Sheet kb - Kidney Stones, [id number] kb - Urinary Tract Infection, Adult, [id number] kb Forms: - Medication Reconciliation Form kb - Thank You Letter kb - Antibiotic Education kb - Prescription Opioid Use kb - Patient Portal Instructions kb - Leadership Thank You Letter kb Prescriptions: - Flomax 0.4 mg Oral capsule - take 1 capsule by ORAL route daily; 10 capsule; Refills: 0, Product Selection kb Permitted - Augmentin 875-125 mg Oral Tablet - take 1 tablet by ORAL route every 12 hours for 10 days; 20 tablet; Refills: 0, kb Product Selection Permitted - Zofran 4 mg Oral Tablet - take 1 tablet by ORAL route every 6 hours As needed; 20 tablet; Refills: 0, kb Product Selection Permitted - Diclofenac Sodium 75 mg Oral tablet,delayed release (DR/EC) - take 1 tablet by ORAL route 2 times per day As needed; 30 tablet; Refills: 0, kb Product Selection Permitted Signatures: Dispatcher [employer] EDOK Nichole Tran FNP-C FNP-Ckb Calderon, Audri RN RN aa5 Sun Reyes RN RN mb9 Corrections: (The following items were deleted from the chart) 18:42 16:58 Transvaginal Study (Probe)+[id number].[email or web address].[id number] ordered. [facility] EDOK 23:09 23:08 Abdomen/GI: Inspection: abdomen appears normal, Bowel sounds: normal, Palpation: kb soft, in all quadrants, mild abdominal tenderness, in the right lower quadrant, kb
[2023-02-28] MEDS ORDERED: TAMSULOSIN 0.4 MG SR CAP ONE (18:52)
[2023-02-28] MEDS ORDERED: KETOROLAC 30 MG/ML INJ ONE (18:52)
[2023-02-28] MEDS ORDERED: CEFTRIAXONE 1000 MG/VIAL ONE (18:52)
[2023-02-28] MEDS ORDERED: MAGNESIUM SULFATE 1 gm IVPB 1 GM/100 ML BAG IV ONE (18:52)
[2023-02-28 20:07] VITALS: TEMP 97.4
[2023-02-28 20:09] VITALS: O2SAT 100
[2023-02-28 20:10] VITALS: BP 130/82
== END 2023-02-28 19:55 | disposition home or self-care (01) ==
LOC: ER 16:50
DX: N20.2 Calculus of kidney with calculus of ureter (principal); N39.0 Urinary tract infection, site not specified; Z87.442 Personal history of urinary calculi; Z72.0 Tobacco use
CPT/HCPCS: 96361; 87088; 85025; 81001; 87086; 36415; 81025; 83690; 80053; 76377; 74176; 96375; 96374; 99284; J3475; J2405; J7030; J0696; 87077; 87186

== ENCOUNTER 2023-11-16 12:30 | Emergency (ER) | payer SELFPAY ==
--- OUTSIDE RECORDS SUMMARY | 2023-11-16 12:36 | XMS REPORT | Continuity of Care Document ---
Author Name Unknown Address [address] [facility] [address] [place] [address] [facility] thconnect Address [address] [facility] [place] [address] Care Team Providers Care Laborer Mine Name Role Phone Ivan Jackson Primary Care Physician [phone] Lupillo Garcia Attending Clinician Unavailab Lupillo Dodson Attending Clinician Unavailab sean Steele RN, Niesha L Attending Clinician Unav ARELIS Wilkes Attending Clinician Unavailable ELAN PLAZA Attending Clinician Unav Shay Browning MD Attending Clinician [phone] SHAY VEGA Attending Clinician Unavail able SHAY VEGA Attending Clinician Unavail able Arelis Crawley PA-C Attending Clinician [phone] Doctor Unassigned, [place] Attending Clinician U navailable Zakiya Lanier Attending Clinician [phone] Lab, Ang - Db Attending Clinician Unavailable ZAKIYA RODRIGUEZ Attending Clinician Unavailable ALE VIDES Attending Clinician Unavailable Celestina Rainey MD Attending Clinician [phone] CELESTINA RAINEY Attending Clinician UnavailSonny Cloud Attending Clinician [phone] Homero Russo MD Attending Clinician [phone] Indra GALLAGHER Randy Payan Attending Clinician [phone] Raul Coughlin MD Attending Clinician [phone] Audi Luis MD Attending Clinician +[phone] PARESH Attending Clinician Unavailable Paloma Attending Clinician Unavailable Kay Dinh Attending Clinician + KAY MARINO Attending Clinician Unavail able RAUL COUGHLIN Admitting Clinician Unavailable VIMAL RIVERA.HJarad Admitting Clinician Unavaila Michelle Marsh Admitting Clinician Unavailab Homero Hopkins MD Admitting Clinician [phone] Lupillo Garcia Admitting Clinician Unavailab Raul Mcmahon MD Admitting Clinician [phone] Audi Luis MD Admitting Clinician +[phone] PARESH Admitting Clinician Unavailable Paloma Admitting Clinician Unavailable Payers Payer Name Policy Type Policy Number Effective Date Expirati on Date Source [facility]MERLY [facility] [id number] 2020 00:00:00 [facility] [id number] 2015 00:00:00 Problems Condition Name Condition Details Condition Category Status Onset Date Resolution Date Last Treatment Date Treating Clinician Comments Source Mild anemia Mild anemia Disease Active 10-27 00:00: 00 [facility] Leukocytos is, unspecifie d type Leukocytos is, unspecifie d type Disease Active 10-13 00:00: 00 [facility] Elevated platelet count Elevated platelet count Disease Active 10-13 00:00: 00 [facility] Appendicit is Appendicit is Disease Active 817 00:00: 00 [facility] 34 weeks gestation of 34 weeks gestation of Disease Active 03-13 00:00: 00 [facility] Heart burn Heart burn Disease Active 03-13 00:00: 00 [facility] Decreased movements in third trimester Decreased movements in third trimester Disease Active 2020-0 9-04 00:00: 00 [facility] Alteration in comfort associated with uterine contractio ns Alteration in comfort associated with uterine contractio ns Disease Active 9-04 00:00: 00 [facility] Other general counseling and advice for contracept chaparrita management Other general counseling and advice for contracept chaparrita management Disease Active 1-31 00:00: 00 [facility] Allergies, Adverse Reactions, Alerts Allergy Name Allergy Type Status Severity Reaction(s) Onset Date Inactive Date Treating Clinician Comments Source Pineappl e Propensi ty to adverse reaction s Active [facility] 08-18 00:00: 00 [facility] PINEAPPL E DRUG INGREDI Active [facility] 08-18 00:00: 00 [facility] No Known Medicati on Allergie s Drug Active [facility] No Known Medicati on Allergie s Drug Active [facility] No Known Medicati on Allergie s Drug Active [facility] No Known Medicati on Allergie s Drug Active [facility] No Known Medicati on Allergie s Drug Active [facility] No Known Medicati on Allergie s Drug Active [facility] No Known Medicati on Allergie s Drug Active [facility] No Known Allergie s Drug Active [facility] Social History Social Habit Start Date Stop Date Quantity Comments Source History of tobacco use Cigarette Smoker [facility] History SDOH Alcohol Frequency [facility] History SDOH Alcohol Std Drinks [facility] History SDOH Alcohol Binge [facility] Exposure to SARS-CoV-2 (event) 2021-11-18 00:00:00 2021-11-28 00:52:00 Not sure [facility] History of Social function 2021-03-02 00:00:00 2021-03-02 00:00:00 [facility] Tobacco use and exposure 2021-02-23 00:00:00 2021-02-23 00:00:00 Smokeless tobacco non-user [facility] Alcohol intake 2020-01-27 00:00:00 2020-01-27 00:00:00 Current drinker of alcohol (finding) [facility] Cigarettes smoked current (pack per day) - Reported 2019-08-09 00:00:00 2019-08-09 00:00:00 [facility] Cigarette pack-years 2019-08-09 00:00:00 2019-08-09 00:00:00 [facility] Alcohol Comment 2015-11-29 00:00:00 2015-11-29 00:00:00 socially [facility] Sex Assigned At 1990 00:00:00 1990 00:00:00 [facility] Smoking Status Start Date Stop Date Source Smokes tobacco daily 2021-10-07 00:00:00 [facility] Ex-smoker 2019-08-09 00:00:00 2019-08-09 00[facility]00:00 [facility] Medications Ordered Medication Name Filled Medication Name Start Date Stop Date Current Medication? Ordering Clinician Indication Dosage Frequency Signature (SIG) Comments Components Source topiramate 50 mg tablet 12-10 00:00: 00 Yes 50mg Take 1 tablet by mouth 2 (two) times daily. 1/2 tab twice a day for 5 days then 1 tab twice a day [facility] topiramate 25 mg tablet 11-29 00:00: 00 Yes [id number] 25mg Take 1 tablet by mouth 2 (two) times daily. After 5 days, may take 2 PO BID. [facility] Fluocinolon e Acetonide Oil (DERMOTIC OIL) 0.01 % otic drops 11-22 00:00: 00 Yes [id number] Apply 4 drops to both ears twice daily for 2 weeks, then at bedtime for 2 weeks, then as needed for ear itching [facility] Vital Signs Vital Name Observation Time Observation Value Comments S breezy Weight Dosing 2020-04-10 05:19:01 Height/Length Measured 2020-04-10 05:19: Height/Length Measured 2021-07-27 12:45:24 162.56 cm Weight [...] 12:20:23 76.5 kg Weight Dosing 2020-03-21 00:29:02 Encounters Start Date/Time End Date/Time Encounter Type Admission Type Attending [facility] Care Department Encounter ID Source 2021-05-10 15:58:14 Emergency [facility] [id number] [facility] 2021-05-07 16:06:03 Outpatient P RUST DAR[facility] [id number] [facility] 2021-05-07 07:33:53 Outpatient P [facility] [id number] [facility] 2020-04-10 04:19:00 Inpatient 3 Lupillo Garcia Jaime [facility] [id number] [facility] 2022-03-11 00:00:00 2022-03-11 00:00:00 Telephone Niesha Steele 1.2.840.114 350.1.13.10 4.2.7.2.686 [id number] [facility] 2022-01-04 11:15:00 2022-01-04 11:15:00 Outpatient R ARELIS CRAWLEY [facility] [id number] [facility] 2022-01-03 10:45:00 2022-01-03 10:45:00 Outpatient R ELAN ANTOINE [facility] [id number] [facility] 2021-12-09 00:00:00 2021-12-09 00:00:00 Telephone Shay Vega [facility] 1.2.840.114 350.1.13.10 4.2.7.2.686 [id number] [facility] 2021-11-29 10:00:00 2021-11-29 10:38:42 Office Visit Shay Vega [facility] 1.2.840.114 350.1.13.10 4.2.7.2.686 [id number] [facility] 2021-11-29 10:00:00 2021-11-29 10:38:42 Outpatient SHAY ANNE HOWARD [facility] [id number] [facility] 2021-11-29 10:00:00 2021-11-29 10:00:00 Outpatient SHAY ANNE HOWARD [facility] [id number] [facility] 2021-11-22 13:00:00 2021-11-22 13:30:00 Office Visit Arelis Crawley [facility] 1..840.114 350.1.13.10 4.2.7.2.686 [id number] [facility] 2021-11-22 13:00:00 2021-11-22 13:00:00 Outpatient ARELIS WILLIAM [facility] [id number] [facility] 2021-11-22 13:00:00 2021-11-22 13:00:00 Outpatient ARELIS WILLIAM [facility] [id number] [facility] 2021-11-03 00:00:00 2021-11-03 00:00:00 Patient Secure Msg Doctor Unassigned, [place] [facility] 1..840.114 350.1.13.10 4.2.7.2.686 [id number] [facility] 2021-11-03 00:00:00 2021-11-03 00:00:00 Patient Secure Msg Doctor Unassigned, [place] [facility] 1.2.840.114 350.1.13.10 4.2.7.2.686 [id number] [facility] 2021-10-28 00:00:00 2021-10-28 00:00:00 Patient Secure Msg Doctor Unassigned, [place] [facility] 1.2.840.114 350.1.13.10 4.2.7.2.686 [id number] [facility] 2021-10-27 00:00:00 2021-10-27 00:00:[address] [facility] 1.2.840.114 350.1.13.10 4.2.7.2.686 [id number] [facility] 2021-10-21 12:00:00 2021-10-21 12:15:00 Doctor Naturopathic Visit Lab, Adam Keller Zakiya Rodriguez [facility] 1.2.840.114 350.1.13.10 4.2.7.2.686 [id number] [facility] 2021-10-21 11:30:00 2021-10-21 12:00:00 Office Visit Zakiya [facility] 1.2.840.114 350.1.13.10 4.2.7.2.686 [id number] [facility] 2021-10-21 11:30:00 2021-10-21 11:30:00 Outpatient R MICHAEL ZAKIYA [facility] [id number] [facility] 2021-10-21 11:30:00 2021-10-21 11:30:00 Outpatient R MICHAEL ZAKIYA [facility] [id number] [facility] 2021-10-19 08:45:00 2021-10-19 08:45:00 Outpatient R ALE VIDES [facility] [id number] [facility] 2021-10-14 00:00:00 2021-10-14 00:00:00 Patient Secure Msg Doctor Unassigned, [place] [facility] 1.840.114 350.1.13.10 4.2.7.2.686 [id number] [facility] 2021-10-13 00:00:00 2021-10-13 00:00:[address] 1.84.114 350.1.13.10 4.2.7.2.686 [id number] [facility] 2021-10-13 00:00:00 2021-10-13 00:00:00 Patient Secure Msg Doctor Unassigned, [place] [facility] 1.84.114 350.1.13.10 4.2.7.2.686 [id number] [facility] 2021-10-08 11:00:00 2021-10-08 11:15:00 Doctor Naturopathic Visit Lab, Ang - Zakiya Deluca [facility] 1.840.114 350.1.13.10 4.2.7.2.686 [id number] [facility] 2021-10-08 11:00:00 2021-10-08 11:00:00 Outpatient R ZAKIYA RODRIGUEZ [facility] [id number] [facility] 2021-10-08 11:00:00 2021-10-08 11:00:00 Outpatient R ZAKIYA RODRIGUEZ [facility] [id number] [facility] 2021-10-07 13:30:00 2021-10-07 14:15:08 Outpatient R ZAKIYA RODRIGUEZ [facility] [id number] [facility] 2021-10-07 13:30:00 2021-10-07 14:15:08 Office Visit Zakiya Rodriguez [facility] 1.840.114 350.1.13.10 4.2.7.2.686 [id number] [facility] 2021-10-07 13:30:00 2021-10-07 14:15:08 Outpatient R ZAKIYA RODRIGUEZ [facility] [id number] [facility] 2021-03-02 14:17:55 2021-03-02 15:04:41 Office Visit Celestina Rainey [facility] 1.84.114 350.1.13.10 4.2.7.2.686 [id number] [facility] 2021-03-02 14:30:00 2021-03-02 14:30:00 Outpatient R CELESTINA RAINEY [facility] [id number] [facility] 2021-03-02 00:00:00 2021-03-02 00:00:00 Orders Only Doctor Unassigned, [place] [facility] 1.20.114 350.1.13.10 4.2.7.2.686 [id number] [facility] 2021-03-02 00:00:00 2021-03-02 00:00:00 Orders Only Doctor Unassigned, [place] [facility] 1.2840.114 350.1.13.10 4.2.7.2.686 [id number] [facility] 2021-02-24 00:00:00 2021-02-24 00:00:00 Patient Secure Msg Doctor Unassigned, [place] [facility] 1.2840.114 350.1.13.10 4.2.7.2.686 [id number] [facility] 2021-02-24 00:00:00 2021-02-24 00:00:00 Telephone Celestina Rainey [facility] 1.84.114 350.1.13.10 4.2.7.2.686 [id number] [facility] 2021-02-22 22:50:00 2021-02-23 10:38:00 Emergency Sonny Uribe Adnan [facility] [place] 1.2.840.114 350.1.13.10 4.2.7.2.686 [id number] [facility] 2021-02-23 08:00:00 2021-02-23 10:37:00 Surgery Jonathansusanneliliana Celestina S [facility] 1.2.840.114 350.1.13.10 4.2.7.2.686 [id number] [facility] 2021-02-22 00:00:00 2021-02-22 00:00:00 Orders Only Doctor Unassigned, [place] [facility] 1.2.840.114 350.1.13.10 4.2.7.2.686 [id number] [facility] 2020-09-29 00:00:00 2020-09-29 00:00:00 Patient Outreach Randy Burrell [facility] 1.2.840.114 350.1.13.10 4.2.7.2.686 [id number] [facility] 2020-04-10 04:19:00 2020-04-11 14:44:00 Inpatient 3 Lupillo Garcia Replaced by [facility] [id number] [facility] 2020-04-04 23:12:00 2020-04-04 23:12:00 Outpatient Lupillo Garcia Radha Lupillo [facility] [id number] [facility] 2020-04-03 23:12:00 2020-04-04 01:40:00 Outpatient 3 Lpuillo Garcia Radha Lupillo [facility] [id number] [facility] 2020-03-21 00:16:00 2020-03-21 05:20:00 Outpatient 3 Lupillo Garcia Jaime [facility] [id number] [facility] 2020-03-21 00:16:00 2020-03-21 00:16:00 Outpatient Lupillo Garcia Jaime [facility] [id number] [facility] 2020-03-13 17:41:00 2020-03-13 20:35:00 Hospital Encounter Raul Coughlin [facility] 1.2.840.114 350.1.13.10 4.2.7.2.686 [id number] [facility] 2020-02-19 00:00:00 2020-02-19 00:00:00 Patient Secure Msg Doctor Unassigned, [place] [facility] 1.2.840.114 350.1.13.10 4.2.7.2.686 [id number] [facility] 2020-01-27 03:02:00 2020-01-27 06:50:00 Hospital Encounter Audi Luis [facility] 1.2.840.114 350.1.13.10 4.2.7.2.686 [id number] [facility] 2020-01-15 02:20:00 2020-01-15 02:20:00 Outpatient FERGUSON_JO HN [facility] [id number] [facility] 2020-01-14 03:21:00 2020-01-14 03:21:00 Outpatient FERGUSON_JO HN [facility] [id number] [facility] 2019-09-02 05:06:00 2019-09-02 05:06:00 Outpatient G_Pappas [facility] [id number] [facility] 2019-08-12 00:00:00 2019-08-12 00:00:00 Telephone Kay Marino [facility] [employer] [facility] 1.2.840.114 350.1.13.10 4.2.7.2.686 [id number] [facility] 2019-08-09 13:30:00 2019-08-09 14:16:47 Outpatient R KAY MARINO [facility] [id number] [facility] Results Test Description Test Time Test Comments Results Result Co mments Source ABORh [id number] 18:59:40* Test Item Value Reference Range Interpretation Comme nts Methodology (test code = Methodology) Test-Tube(TT) Anti-A (test code = Anti-A) 0 Anti-B (test code = Anti-B) 0 Anti-AB (test code = Anti-AB) NT Anti-D (test code = Anti-D) 4+ ABORh Retype (test code = AB ORh Retype) O POS Hemoglobin and [id number] 17:46:24* Test Item Value Reference Range Interpretation Comme nts Hgb (test code = Hgb) 11.4 g/dL 12.2-14.8 L Hct (test code = Hct) 34.6 % 36.5-44.4 L ABORh [id number] 12:28:56* Test Item Value Reference Range Interpretation Comme nts Methodology (test code = Methodology) Test-Tube(TT) Anti-A (test code = Anti-A) 0 Anti-B (test code = Anti-B) 0 Anti-AB (test code = Anti-AB) NT Anti-D (test code = Anti-D) 4+ ABORh Retype (test code = AB ORh Retype) O POS 3C ABSC [id number] 07:00:55* Test Item Value Reference Range Interpretation Comme nts SC1 IS (test code = SC1 IS) [...] SC3 CC) 3+ Antibody Screen (3C) (test c ode = Antibody Screen (3C)) Negative ABSC [id number] 06:45:45* Test Item Value Reference Range Interpretation Comme nts Previous History (test code = Previous History) No Prev History BBID (test code = BBID) [id number] Methodology (test code = Methodology) Test-Tube(TT) Anti-A (test code = Anti-A) 0 Anti-B (test code = Anti-B) 0 Anti-D (test code = Anti-D) 4+ DCon (test code = DCon) NT A1 (test code = A1) 4+ B cells (test code = B cells) 4+ ABORh (test code = ABORh) O POS Comprehensive Metabolic [id number] 06:40:13* Test Item Value Reference Range Interpretation Comme nts Sodium Level (test code = So dium Level) 139.0 mmol/L 136.0-145.0 Potassium Level (test code = Potassium Level) 4.10 mmol/L 3.50-5.10 Chloride Level (test code = Chloride Level) 104.0 mmol/L 98.0-107.0 CO2 (test code = CO2) 22 mmol/L 20-31 Anion Gap (test code = Anion Gap) 13.0 mmol/L 5.0-15.0 BUN (test code = BUN) 6 mg/dL 9-23 L Creatinine Level (test code = Creatinine Level) 0.51 mg/dL 0.55-1.02 L BUN/Creat Ratio (test code = BUN/Creat Ratio) 11.8 ratio 10.0-20.0 Glucose Level (test code = Glucose Level) 81 mg/dL 74-106 Calcium Level (test code = Calcium Level) 9.1 mg/dL 8.3-10.6 Alk Phos (test code = Alk Phos) 168 U/L 46-116 H Bilirubin Total (test code = Bilirubin Total) 0.3 mg/dL 0.2-1.1 Albumin Level (test code = Albumin Level) 4.2 g/dL 3.2-4.8 Protein Total (test code = Protein Total) 6.2 g/dL 5.7-8.2 ALT (test code = ALT) 13 U/L 10-49 AST (test code = AST) 16 U/L <=34 Globulin (test code = Globulin) 2.0 g/dL 2.3-3.5 L A/G Ratio (test code = A/G Ratio) 2.1 g/dL 0.8-2.0 H Hemolysis (test code = Hemolysis) 0 g/dL 1-2 H Icterus (test code = Icterus) 0 g/dL 1-2 H Lipemia (test code = Lipemia) 0 g/dL 1-2 H Comprehensive Metabolic [id number] 06:40:13* Test Item Value Reference Range Interpretation Comme nts Sodium Level (test code = Sodium Level) 139.0 mmol/L 136.0-145.0 Potassium Level (test code = Potassium Level) 4.10 mmol/L 3.50-5.10 Chloride Level (test code = Chloride Level) 104.0 mmol/L 98.0-107.0 CO2 (test code = CO2) 22 mmol/L 20-31 Anion Gap (test code = Anion Gap) 13.0 mmol/L 5.0-15.0 BUN (test code = BUN) 6 mg/dL 9-23 L Creatinine Level (test code = Creatinine Level) 0.51 mg/dL 0.55-1.02 L BUN/Creat Ratio (test code = BUN/Creat Ratio) 11.8 ratio 10.0-20.0 Glucose Level (test code = Glucose Level) 81 mg/dL 74-106 Calcium Level (test code = Calcium Level) 9.1 mg/dL 8.3-10.6 Alk Phos (test code = Alk Phos) 168 U/L 46-116 H Bilirubin Total (test code = Bilirubin Total) 0.3 mg/dL 0.2-1.1 Albumin Level (test code = Albumin Level) 4.2 g/dL 3.2-4.8 Protein Total (test code = Protein Total) 6.2 g/dL 5.7-8.2 ALT (test code = ALT) 13 U/L 10-49 AST (test code = AST) 16 U/L <=34 Globulin (test code = Globulin) 2.0 g/dL 2.3-3.5 L A/G Ratio (test code = A/G Ratio) 2.1 g/dL 0.8-2.0 H eGFR AA (test code = eGFR AA) >60 mL/min/1.73 m2 >=60 eGFR (estimated Glomerular Filtration Rate) is an estimated value, calculated from the patient's serum creatinine using the MDRD equation. It is NOT the patient's actual GFR. The eGFR provides a more clinically useful measure of kidney disease than serum creatinine alone.This calculation takes sex and race into account, if the information is provided. If the race is not provided, and the patient is -Czech, multiply by 1.212. If sex is not provided, and the patient is female, multiply by 0.742. Results for patients <18 years of age have not been validated by the MDRD study and should be interpreted with caution. eGFR Result Interpretation:eGFR > or = 60 is in the Normal RangeeGFR < 60 may mean kidney diseaseeGFR < 15 may mean kidney failure Ranges recommended by the National Kidney Foundation, http://nkdep.nih.gov Hemolysis (test code = Hemolysis) 0 g/dL 1-2 H Icterus (test code = Icterus) 0 g/dL 1-2 H Lipemia (test code = Lipemia) 0 g/dL 1-2 H Hepatitis B Surface [id number] 06:40:13* Test Item Value Reference Range Interpretation Comme nts Hep Bs Ag (test code = Hep B s Ag) Non-Reactive Non-Reactive Comprehensive Metabolic [id number] 06:40:13* Test Item Value Reference Range Interpretation Comme nts Sodium Level (test code = Sodium Level) 139.0 mmol/L 136.0-145.0 Potassium Level (test code = Potassium Level) 4.10 mmol/L 3.50-5.10 Chloride Level (test code = Chloride Level) 104.0 mmol/L 98.0-107.0 CO2 (test code = CO2) 22 mmol/L 20-31 Anion Gap (test code = Anion Gap) 13.0 mmol/L 5.0-15.0 BUN (test code = BUN) 6 mg/dL 9-23 L Creatinine Level (test code = Creatinine Level) 0.51 mg/dL 0.55-1.02 L BUN/Creat Ratio (test code = BUN/Creat Ratio) 11.8 ratio 10.0-20.0 Glucose Level (test code = Glucose Level) 81 mg/dL 74-106 Calcium Level (test code = Calcium Level) 9.1 mg/dL 8.3-10.6 Alk Phos (test code = Alk Phos) 168 U/L 46-116 H Bilirubin Total (test code = Bilirubin Total) 0.3 mg/dL 0.2-1.1 Albumin Level (test code = Albumin Level) 4.2 g/dL 3.2-4.8 Protein Total (test code = Protein Total) 6.2 g/dL 5.7-8.2 ALT (test code = ALT) 13 U/L 10-49 AST (test code = AST) 16 U/L <=34 Globulin (test code = Globulin) 2.0 g/dL 2.3-3.5 L A/G Ratio (test code = A/G Ratio) 2.1 g/dL 0.8-2.0 H eGFR AA (test code = eGFR AA) >60 mL/min/1.73 m2 >=60 eGFR (estimated Glomerular Filtration Rate) is an estimated value, calculated from the patient's serum creatinine using the MDRD equation. It is NOT the patient's actual GFR. The eGFR provides a more clinically useful measure of kidney disease than serum creatinine alone.This calculation takes sex and race into account, if the information is provided. If the race is not provided, and the patient is -Czech, multiply by 1.212. If sex is not provided, and the patient is female, multiply by 0.742. Results for patients <18 years of age have not been validated by the MDRD study and should be interpreted with caution. eGFR Result Interpretation:eGFR > or = 60 is in the Normal RangeeGFR < 60 may mean kidney diseaseeGFR < 15 may mean kidney failure Ranges recommended by the National Kidney Foundation, http://nkdep.nih.gov eGFR Non-AA (test code = eGFR Non-AA) >60.00 mL/min/1.73 m2 >=60.00 eGFR (estimated Glomerular Filtration Rate) is an estimated value, calculated from the patient's serum creatinine using the MDRD equation. It is NOT the patient's actual GFR. The eGFR provides a more clinically useful measure of kidney disease than serum creatinine alone.This calculation takes sex and race into account, if the information is provided. If the race is not provided, and the patient is -[place], multiply by 1.212. If sex is not provided, and the patient is female, multiply by 0.742. Results for patients <18 years of age have not been validated by the MDRD study and should be interpreted with caution. eGFR Result Interpretation:eGFR > or = 60 is in the Normal RangeeGFR < 60 may mean kidney diseaseeGFR < 15 may mean kidney failure Ranges recommended by the National Kidney Foundation, http://nkdep.nih.gov Hemolysis (test code = Hemolysis) 0 g/dL 1-2 H Icterus (test code = Icterus) 0 g/dL 1-2 H Lipemia (test code = Lipemia) 0 g/dL 1-2 H Complete Blood Count with [id number] 06:20:47* Test Item Value Reference Range Interpretation Comme nts WBC (test code = WBC) 19.0 x10 4.4-10.5 H RBC (test code = RBC) 4.02 x10 3.75-5.20 Hgb (test code = Hgb) 12.0 g/dL 12.2-14.8 L Hct (test code = Hct) 36.6 % 36.5-44.4 MCV (test code = MCV) 91.00 fL 80.00-100.00 MCHC (test code = MCHC) 32.80 g/dL 32.00-37.50 RDW CV (test code = RDW CV) 12.4 % 11.5-14.5 MCH (test code = MCH) 29.9 pg 27.0-32.5 Platelets (test code = Platelets) 353.0 x10 140.0-440.0 MPV (test code = MPV) 10.4 fL N Slide Review (test code = Slide Review) Auto Auto Result crea domitila by [id number]_[id number]_AUTO nRBC (test code = nRBC) 0 N NRBC Abs (test code = NRBC Abs) 0.00 x10 N Automated [id number] 06:20:47* Test Item Value Reference Range Interpretation Comme nts Neutro Auto (test code = Yenifer tro Auto) 75.8 % 36.0-70.0 H Lymph Auto (test code = Lymph Auto) 14.8 % 12.0-44.0 Delta Auto (test code = Delta Auto) 7.7 % 0.0-11.0 Eos, Auto (test code = Eos, Auto) 0.9 % 0.0-7.0 Basophil Auto (test code = B asophil Auto) 0.2 % 0.0-2.0 Neutro Absolute (test code = Neutro Absolute) 14.4 x10 1.6-7.4 H Lymph Absolute (test code = Lymph Absolute) 2.82 x10 .50-4.60 Delta Absolute (test code = M liliane Absolute) 1.47 x10 .00-1.20 H Eos Absolute (test code = Eo s Absolute) 0.17 x10 0.00-0.74 Baso Absolute (test code = B aso Absolute) 0.03 x10 0.00-0.21 IG [id number] 06:20:47* Test Item Value Reference Range Interpretation Comme nts IG (test code = IG) 0.6 % 0.0-5.0 IG Abs (test code = IG Abs) 0 x10 N
[2023-11-16 14:26] LABS: Specific Gravity 1.015 (1.005-1.030)
[2023-11-16 14:35] LABS: Absolute Eosinophils 0.2 K/uL (0-0.5); Absolute Lymphocytes (CBC) 1.9 K/uL (0.7-4.9); Absolute Monocytes 0.8 K/uL (0.1-1.3); Absolute Neutrophil 6.2 K/uL (1.8-8.0); Basophils % 0.4 % (0-1.3); Eosinophils % 2.3 % (0-4.4); Hemoglobin 10.8 g/dL (12.0-15.0); Lymphocytes % 21.1 % (15.3-44.8); MCH 24.5 pg (27.0-35.0); MCHC 32.6 g/dL (32.0-36.0); MPV 7.4 fL (7.6-11.3); Monocytes % 8.3 % (3.3-12.3); Neutrophils % 67.9 % (41.7-73.7); Platelets 423 thou/uL (152-406); RBC Red Blood Cell Count 4.39 M/uL (3.86-4.86); Red Cell Distribution Width 16.1 % (12.1-15.2)
[2023-11-16] MEDS ORDERED: NA CHLORIDE 0.9% 1,000 ML ONE (14:40)
[2023-11-16 14:45] LABS: Specific Gravity 1.015 (1.005-1.030); Sqamous Epithelial >50 /HPF (None Seen); Urine Bacteria 20-50 /HPF (<20); Urine Bilirubin NEGATIVE (Negative); Urine Blood 2+ (Negative); Urine Clarity Extremely Turbid (Clear); Urine Color Yellow (Yellow); Urine Culture Reflex Order NOT NEEDED; Urine Glucose NEGATIVE (Negative); Urine Ketones NEGATIVE (Negative); Urine Microscopic Reflex YN ORDER UMIC; Urine Mucus 2+ /HPF (None Seen); Urine Nitrite NEGATIVE (Negative); Urine Protein TRACE (Negative); Urine Urobilinogen Normal (Normal)
--- NOTE | 2023-11-16 14:47 | RAD REPORT ---
EXAM DESCRIPTION: US - Transvaginal OB - 11/16/2023 1:36 pm CLINICAL HISTORY: ABD CRAMPING, COMPARISON: Transvaginal OB dated 09/08/2019 TECHNIQUE: Sonographic grayscale and color flow images of a first-trimester were obtained through transvaginal approach. FINDINGS: A single live intrauterine is identified. heart rate: 104 BPM. No measurable pole is identified. Gestational sac measures 15.1 mm in average diameter, corresponding to gestational age of 6 weeks, 2 days. Normal yolk sac is visualized. Nabothian cysts seen at the cervix. Posterior wall subserosa 1.5 cm hypoattenuating fibroid is incide ntally noted. No discrete abnormal fluid collections. Maternal ovaries are unremarkable, with a dominant left ovarian 1.7 cm cystic lesion, could represent an early corpus luteum. No free fluid. IMPRESSION: 1. Early single live intrauterine . 2. Calculated gestational age: 6 weeks, 2 days, by gestational sac size. Estimated due date by ultras ound: 07/09/2024.
[2023-11-16 15:08] LABS: Anion Gap 6.3 mEq/L (5.0-15.0); Potassium 3.3 mEq/L (3.5-5.1)
[2023-11-16] MEDS ORDERED: CEFTRIAXONE 1000 MG/VIAL ONE (16:27)
--- NOTE | 2023-11-16 16:40 | EDPHYS ---
Physician Documentation [facility] Name: Lorin Lyon Age: 33 yrs Sex: Female : 1990 Arrival Date: 11/16/2023 Time: 12:30 Bed 12 Private MD: ILA Physician Frank Hurtado HPI: 11/15 16:29 This 33 yrs old Female presents to ER via Ambulatory with complaints of pj , Abdominal Cramping. 16:29 The patient presents to the emergency department with vaginal bleeding, that is light. pj The estimated gestational age is 6 weeks. course: care: at a clinic, Leakage of Fluid: yes, Ultrasound: the patient has not had an ultrasound. Previous pregnancies: in previous pregnancies patient has had vaginal delivery. The patient has experienced similar episodes in the past, a few times. RUNWAY MODEL: 16:29 4, Full Term 3, Premature 0, 0, Living 3, unknown pj 16:48 unknown, unsure but has had a positive test me1 Historical: - Allergies: 13:00 No Known Allergies; ph - PMHx: 13:00 Hernia; Kidney stones; ph - PSHx: 13:00 Appendectomy; hernia repair; ph - Immunization history:: Adult Immunizations up to date. - Infectious Disease History:: Denies. - Social history:: Smoking status: Patient reports the use of cigarette tobacco products, denies chronic smoking, but will smoke occasionally. - Family history:: not pertinent. ROS: 16:29 Constitutional: Negative for fever, chills, and weight loss, Eyes: Negative for injury, pj pain, redness, and discharge, ENT: Negative for injury, pain, and discharge, Neck: Negative for injury, pain, and swelling, Cardiovascular: Negative for chest pain, palpitations, and edema, Respiratory: Negative for shortness of breath, cough, wheezing, and pleuritic chest pain, Back: Negative for injury and pain, : Negative for injury, bleeding, discharge, and swelling, MS/Extremity: Negative for injury and deformity, Skin: Negative for injury, rash, and discoloration, Neuro: Negative for headache, weakness, numbness, tingling, and seizure, Psych: Negative for depression, anxiety, suicide ideation, homicidal ideation, and hallucinations, Allergy/Immunology: Negative for hives, rash, and allergies, Endocrine: Negative for neck swelling, polydipsia, polyuria, polyphagia, and marked weight changes, Hematologic/Lymphatic: Negative for swollen nodes, abnormal bleeding, and unusual bruising, Exam: 16:39 Constitutional: This is a well developed, well nourished patient who is awake, alert, pj and in no acute distress. Head/Face: Normocephalic, atraumatic. Eyes: Pupils equal round and reactive to light, extra-ocular motions intact. Lids and lashes normal. Conjunctiva and sclera are non-icteric and not injected. Cornea within normal limits. Periorbital areas with no swelling, redness, or edema. ENT: Nares patent. No nasal discharge, no septal abnormalities noted. Tympanic membranes are normal and external auditory canals are clear. Oropharynx with no redness, swelling, or masses, exudates, or evidence of obstruction, uvula midline. Mucous membranes moist. Neck: Trachea midline, no thyromegaly or masses palpated, and no cervical lymphadenopathy. Supple, full range of motion without nuchal rigidity, or vertebral point tenderness. No Meningismus. Chest/axilla: Normal chest wall appearance and motion. Nontender with no deformity. No lesions are appreciated. Cardiovascular: Regular rate and rhythm with a normal S1 and S2. No gallops, murmurs, or rubs. Normal PMI, no JVD. No pulse deficits. Respiratory: Lungs have equal breath sounds bilaterally, clear to auscultation and percussion. No rales, rhonchi or wheezes noted. No increased work of breathing, no retractions or nasal flaring. Abdomen/GI: Soft, non-tender, with normal bowel sounds. No distension or tympany. No guarding or rebound. No evidence of tenderness throughout. Back: No spinal tenderness. No costovertebral tenderness. Full range of motion. Female : Normal external genitalia. Skin: Warm, dry with normal turgor. Normal color with no rashes, no lesions, and no evidence of cellulitis. MS/ Extremity: Pulses equal, no cyanosis. Neurovascular intact. Full, normal range of motion. Neuro: Awake and alert, GCS 15, oriented to person, place, time, and situation. Cranial nerves II-XII grossly intact. Motor strength 5/5 in all extremities. Sensory grossly intact. Cerebellar exam normal. Normal gait. Psych: Awake, alert, with orientation to person, place and time. Behavior, mood, and affect are within normal limits. Vital Signs: 12:54 BP 126 / 81; Pulse 78; Resp 18; Temp 97.8; Pulse Ox 98% on R/A; Weight 68.04 kg; Height ph 5 ft. 4 in. ; 14:45 BP 111 / 67; Pulse 69; Resp 16; Pulse Ox 100% on R/A; Pain 3/10; me1 15:30 BP 117 / 66; Pulse 71; Resp 16; Pulse Ox 100% ; me1 16:47 BP 105 / 61; Pulse 88; Resp 18; Pulse Ox 100% on R/A; Pain 0/10; me1 12:54 Body Mass Index 25.75 (68.04 kg, 162.56 cm) ph 14:45 Pain Scale: Adult me1 16:47 Pain Scale: Adult me1 MDM: 12:54 Patient medically screened. [facility] 16:35 Differential diagnosis: threatened Ab, missed Ab. Data reviewed: vital signs, nurses [facility] notes, lab test result(s), radiologic studies, ultrasound. Consideration of Admission/Observation Escalation of care including admission/observation considered. I considered the following discharge prescriptions or medication management in the emergency department Medications were administered in the Emergency Department. See MAR. Independent interpretation of the following test(s) in the Emergency Department Radiology Department Ultrasound: My interpretation is VAG PROBE USG. Test considered but Not performed: MRI: NO MRI PELVIS. Care significantly affected by the following chronic conditions: HERNIA , KIDNEY STONE. Counseling: I had a detailed discussion with the patient and/or guardian regarding the historical points, exam findings, and any diagnostic results supporting the discharge/admit diagnosis, lab results, radiology results, the need for outpatient follow up, for definitive care, an OB/Gyne specialist. 11/15 12:55 Order name: Abo/rh Typing; Complete Time: 16:23 [facility] 11/15 12:55 Order name: Basic Metabolic Panel; Complete Time: 16:23 [facility] 11/15 12:55 Order name: CBC with Diff; Complete Time: 16:23 [facility] 11/15 12:55 Order name: Test, Urine; Complete Time: 16:23 [facility] 11/15 12:55 Order name: Quantitative Hcg; Complete Time: 16:23 [facility] 11/15 12:55 Order name: Urinalysis w/ reflexes; Complete Time: 16:23 [facility] 11/15 12:55 Order name: US Transvaginal Ob; Complete Time: 16:23 [facility] 11/15 12:55 Order name: IV Saline Lock; Complete Time: 14:26 [facility] 11/15 12:55 Order name: Labs collected and sent; Complete Time: 14:26 [facility] 11/15 12:55 Order name: NPO; Complete Time: 14:26 [facility] Administered Medications: 14:45 Drug: NS 0.9% IV 1000 ml IV at 1 bolus Per protocol; 1000 mL bolus Route: IV; Rate: 1 me1 bolus; Site: left antecubital; 15:50 Follow up: Response: No adverse reaction; IV Status: Completed infusion me1 16:33 Drug: Rocephin IV 1 grams IV at per protocol once; Given slow IV push per pharmacy me1 instructions Route: IV; Rate: per protocol; Site: left antecubital; 16:34 Follow up: IV Status: Completed infusion me1 Disposition Summary: 11/16/23 16:40 Discharge Ordered Notes: Location: Home pj Problem: new pj Symptoms: have improved pj Condition: Stable pj Diagnosis - Threatened pj - Less than 8 weeks gestation of pj - Other specified related conditions, first trimester pj Followup: pj - With: Private Physician - When: 2 - 3 days - Reason: Recheck today's complaints, Continuance of care, Re-evaluation by your physician Discharge Instructions: - Discharge Summary Sheet pj - Care pj - Threatened Miscarriage pj - Vaginal Bleeding During , First Trimester pj - First Trimester of , [id number] pj - First Trimester of pj - Threatened Miscarriage, Nvoa-pw-[id number] pj - Vaginal Bleeding During , First Trimester, Hmrw-wm-[id number] pj Forms: - Medication Reconciliation Form pj - Antibiotic Education pj - Prescription Opioid Use pj - Patient Portal Instructions pj - Leadership Thank You Letter pj Signatures: Dispatcher [employer] Frank Wan MD MD cha Hall, Patricia, RN RN Donya Jolly RN RN me1 Corrections: (The following items were deleted from the chart) 12:56 12:56 ABO/RH TYPING+BB.LAB.BRZ ordered. EDMS EDMS 12:56 12:56 BASIC METABOLIC PANEL+C.LAB.BRZ ordered. EDMS EDMS 12:56 12:56 CBC+H.LAB.BRZ ordered. EDMS EDMS 12:56 12:56 Test, Urine+UC.LAB.BRZ ordered. EDMS EDMS 12:56 12:56 QUANTITATIVE HCG+C.LAB.BRZ ordered. EDMS EDMS 12:56 12:56 Urinalysis+U.LAB.BRZ ordered. EDMS EDMS
--- NOTE | 2023-11-16 16:40 | ER ---
Nurse's Notes [facility] Name: Lorin Lyon Age: 33 yrs Sex: Female : 1990 Arrival Date: 11/16/2023 Time: 12:30 Bed 12 Private MD: Diagnosis: Threatened ;Less than 8 weeks gestation of ;Other specified related conditions, first trimester Presentation: 11/15 12:54 Chief complaint: Patient states: Positive urine test on November 07, has had ph abdominal cramping since the first, spotting that started 2 days ago, no spotting today. Coronavirus screen: Vaccine status: Patient reports receiving the 2nd dose of the covid vaccine. Ebola Screen: No symptoms or risks identified at this time. Initial Sepsis Screen: Does the patient meet any 2 criteria? No. Patient's initial sepsis screen is negative. Does the patient have a suspected source of infection? No. Patient's initial sepsis screen is negative. Risk Assessment: Do you want to hurt yourself or someone else? Patient reports no desire to harm self or others. Onset of symptoms was November 16, 2023. 12:54 Method Of Arrival: Ambulatory 12:54 Acuity: PATRICIA 3 ph CATARACT LENS GENERATOR: 16:29 4, Full Term 3, Premature 0, 0, Living 3, unknown pj 16:48 unknown, unsure but has had a positive test me1 Historical: - Allergies: 13:00 No Known Allergies; ph - PMHx: 13:00 Hernia; Kidney stones; ph - PSHx: 13:00 Appendectomy; hernia repair; ph - Immunization history:: Adult Immunizations up to date. - Infectious Disease History:: Denies. - Social history:: Smoking status: Patient reports the use of cigarette tobacco products, denies chronic smoking, but will smoke occasionally. - Family history:: not pertinent. Screenin:45 [facility] ED Fall Risk Assessment (Adult) History of falling in the last 3 months, me1 including since admission No falls in past 3 months (0 pts) Confusion or Disorientation No (0 pts) Intoxicated or Sedated No (0 pts) Impaired Gait No (0 pts) Mobility Assist Device Used No (0 pt) Altered Elimination No (0 pt) Score/Fall Risk Level 0 - 2 = Low Risk Maintained a safe environment, Provided non-skid footwear, Hourly rounding (assess needs \T\ fall precautionary measures) done. Abuse screen: Denies threats or abuse. Nutritional screening: No deficits noted. Tuberculosis screening: No symptoms or risk factors identified. Assessment: 14:45 General: Appears uncomfortable, well groomed, well developed, well nourished, Behavior me1 is calm, cooperative, appropriate for age, Reports Positive urine test on November 07, has had abdominal cramping since the first, spotting that started 2 days ago, no spotting today. Pain: Complains of pain in suprapubic area Pain does not radiate. Pain currently is 3 out of 10 on a pain scale. Quality of pain is described as burning, crampy, Pain began gradually, Is intermittent. Neuro: Level of Consciousness is awake, alert, obeys commands, Oriented to person, place, time, situation, Appropriate for age. Cardiovascular: Capillary refill < 3 seconds Patient's skin is warm and dry. Respiratory: Airway is patent Respiratory effort is even, unlabored, Respiratory pattern is regular, symmetrical. GI: Abdomen is non-distended, Bowel sounds present X 4 quads. Abd is soft X 4 quads Reports lower abdominal pain. : Reports pain in suprapubic area. EENT: No signs and/or symptoms were reported regarding the EENT system. Derm: Skin is intact, is healthy with good turgor, Skin is pink, warm \T\ dry. Musculoskeletal: No signs and/or symptoms reported regarding the musculoskeletal system. Vital Signs: 12:54 BP 126 / 81; Pulse 78; Resp 18; Temp 97.8; Pulse Ox 98% on R/A; Weight 68.04 kg; Height ph 5 ft. 4 in. ; 14:45 BP 111 / 67; Pulse 69; Resp 16; Pulse Ox 100% on R/A; Pain 3/10; me1 15:30 BP 117 / 66; Pulse 71; Resp 16; Pulse Ox 100% ; me1 16:47 BP 105 / 61; Pulse 88; Resp 18; Pulse Ox 100% on R/A; Pain 0/10; me1 12:54 Body Mass Index 25.75 (68.04 kg, 162.56 cm) ph 14:45 Pain Scale: Adult me1 16:47 Pain Scale: Adult me1 ED Course: 12:34 Patient arrived in ED. mr 12:54 Frank Hurtado MD is Attending Physician. pj 13:00 Triage completed. ph 13:00 Arm band placed on Patient placed in waiting room, Patient notified of wait time. Labs ph ordered per protocol. 13:37 US Transvaginal Ob In Process Unspecified. EDMS 14:27 Abo/rh Typing Sent. bc6 14:27 Basic Metabolic Panel Sent. 6 14:27 CBC with Diff Sent. 6 14:27 Initial lab(s) drawn, by me, sent to lab. Inserted saline lock: 20 gauge in left bc6 antecubital area, using aseptic technique. Blood collected. 14:38 Donya Jolly, PRABHA is Primary Nurse. me1 14:45 Patient has correct armband on for positive identification. Bed in low position. Call me1 light in reach. Side rails up X 1. Provided Education on: POC. Verbalized understanding. . Client placed on continuous cardiac and pulse oximetry monitoring. NIBP monitoring applied. Pulse ox on. NIBP on. 14:45 No provider procedures requiring assistance completed. me1 16:48 IV discontinued, intact, bleeding controlled, No redness/swelling at site. Pressure me1 dressing applied. Administered Medications: 14:45 Drug: NS 0.9% IV 1000 ml IV at 1 bolus Per protocol; 1000 mL bolus Route: IV; Rate: 1 me1 bolus; Site: left antecubital; 15:50 Follow up: Response: No adverse reaction; IV Status: Completed infusion me1 16:33 Drug: Rocephin IV 1 grams IV at per protocol once; Given slow IV push per pharmacy me1 instructions Route: IV; Rate: per protocol; Site: left antecubital; 16:34 Follow up: IV Status: Completed infusion me1 Medication: 14:45 VIS not applicable for this client. me1 Outcome: 16:40 Discharge ordered by . pj 16:48 Discharged to home ambulatory, me1 16:48 Condition: stable 16:48 Discharge instructions given to patient, Instructed on discharge instructions, follow up and referral plans. Demonstrated understanding of instructions, follow-up care, 16:49 Patient left the ED. me1 Signatures: Dispatcher [employer] EDTN Frank Hurtado MD MD cha Rivera, Mary, Reg Reg Rebekah Zamora RN RN Leena Knott 6 Donya Jolly, PRABHA RN me1 Corrections: (The following items were deleted from the chart) 14:45 12:54 Chief complaint: Patient states: Positive urine test on November 07, has me1 had abdominal cramping since the first, spotting that started 2 days ago, no spotting today ph
[2023-11-16 17:16] VITALS: TEMP 97.8; O2SAT 100
[2023-11-16 17:38] VITALS: BP 105/61
== END 2023-11-16 16:49 | disposition home or self-care (01) ==
LOC: ER 12:30
DX: O20.0 Threatened abortion (principal); Z3A.01 Less than 8 weeks gestation of pregnancy
CPT/HCPCS: 36415; 76817; 80048; 81001; 81025; 84702; 85025; 86900; 86901; 96361; 96374; 99284; J0696; J7030